=== PATIENT | male | born 1950 | race Caucasian/White ===

== ENCOUNTER 2017-12-28 11:28 | Day surgery (SDC) | payer MEDICARE, MEDICAID, SELFPAY ==
--- NOTE | 2017-12-28 | EGD_PTH ---
PATIENT: ALAINA RICHARD LOC: EN U#:[id number] AGE/SX: 67/M ROOM: RE12/28/[address]: Dr. Fabio Teague MD : 1950 BED: DIS: 12/28/2017 SPEC #: [id number] RECD: 12/28/17 15:19 STATUS: SHAHEED UMU #: [id number] ALMA DELIA: 12/28/17 00:[address]: Fabio Teague DEPT: SURGICAL PATHOLOGY RECD BY: Kirit Lo ENTERED: 12/29/17 08:18 SP TYPE: EGD BIOPSY DAMARIS DR: Dr. Davide Hickman MD Tissues: A - Gastric mucous membrane B - Esophageal mucous membrane Procedures: Surgery Specimen Level IV HEADER OPERATION: EGD with biopsy PRE-OP DIAGNOSIS: GERD and esophagitis TISSUE SUBMITTED: A. Antrum biopsy for H. Pylori and path, B. Esophageal biopsy MICROSCOPIC DIAGNOSIS A. Antrum, biopsy: Mild gastritis. B. Esophageal biopsy: The specimen did not survive processing. SJ:sacha 12/30/17 COMMENT A. The results of immunohistochemistry for Helicobacter pylori will be reported separately ([id number]). MICROSCOPIC DESCRIPTION Slides are reviewed. A. The specimen shows fragments of gastric mucosa with chronic inflammatory cell infiltrates in the lamina propria consisting of lymphocytes and plasma cells, consistent with mild chronic gastritis. GROSS DESCRIPTION A - Received in fixative is one container labeled with the patient's name and designated antrum. The specimen consists of two irregular fragments of light atkinson soft tissue that in aggregate measure 0.3 x 0.2 x 0.1 cm. The specimen is totally submitted in one cassette. B - - Received in fixative is one container labeled with the patient's name and designated esophageal biopsy The specimen consists of a few fragments of atkinson mucoid tissue measuring 0.1 cm in greatest dimension. The specimen is filtered in a biopsy bag and totally submitted in one cassette. RY:sacha 12/29/17 TC:3 CPT: 69707 x1
--- NOTE | 2017-12-28 | IMM_PTH ---
PATIENT: ALAINA RICHARD LOC: EN U#:[id number] AGE/SX: 67/M ROOM: RE12/28/[address]: Dr. Fabio Teague MD : 1950 BED: DIS: 12/28/2017 SPEC #: [id number] RECD: 12/30/17 12:12 STATUS: SHAHEED REHema #: [id number] ALMA DELIA: 12/28/17 00:[address]: Fabio Teague DEPT: IMMUNOHISTOCHEMISTRY RECD BY: Izabela Montes ENTERED: 12/30/17 12:12 SP TYPE: IMMUNO OTHR DR: Dr. Davide Hickman MD Tissues: A - Stomach, NOS Procedures: H Pylori (initial) PHYSICIAN & INSTITUTION [place] [id number] SPECIMEN INFORMATION: Tissue Source: A ? Antral biopsy Clinical Info: GERD, esophagitis Specimen Number: [id number] CPT code: 77163 METHODOLOGY: Deparaffinized sections of prefer/formalin-fixed tissue or PAP/DQ stained slides are incubated with monoclonal/polyclonal antibodies/oligonucleotide probes. Localization is made via biotin free immunoperoxidase method. Appropriate controls are performed and reacted as expected. Results on target cell population are indicated in the following table: RESULTS: ANTIBODY / CLONE RESULT Block A H Pylori (polyclonal) negative These tests were developed and their performance characteristics determined by [facility]. They may not have been cleared or approved by the U.S. Food and Drug Administration. The FDA has determined that such clearance or approval is not necessary. INTERPRETATION: A. Antral biopsy: Negative for Helicobacter pylori organisms. SJ:sacha 12/31/17
--- NOTE | 2017-12-28 07:43 | HP.PCM_ITS ---
History and Physical Date of Admission: 12/28/17 HISTORY AND PHYSICAL ? Frantz Perry 1950 ? REFERRING PHYSICIAN: ~~Will Hickman ? CHIEF COMPLAINT: ~~Consult (for colonoscopy) ? HPI: The patient is a 67 year old male referred for endoscopy. ~The patient~ notes no history of colon complaints. ~Specifically he denies any change in bowel habits, weight changes, blood in stools, black tarry stools or abdominal pain. ~He denies any family history of colon issues. ~The patient notes a history of GERD and takes medication for this regularly. ~He also uses tobacco regularly although he is trying to quit. ~He has not had an EGD in the past. ~ He has undergone prior colonoscopy in 2006 and is due for repeat screening. ? Past medical history is significant for severe COPD, type II diabetes mellitus, spina bifida, hypertension, hyperlipidemia and chronic kidney disease. ~He follows with Dr. Hickman for his chronic medical conditions as well as Dr. Salamanca for pulmonology. ~~He denies problems with sedation in the past. ? ? PAST MEDICAL HISTORY PAST MEDICAL HISTORY Diagnosis Date ? Alcohol abuse, in remission 08/18/2006 ? Since 1982 ? DDD (degenerative disc disease), cervical ? ? severe with compression deformity of C5 ? Depressive disorder, not elsewhere classified 08/18/2006 ? Diabetes (HCC) ? ? Diverticulosis of colon (without mention of hemorrhage) ? ? Edema 08/18/2006 ? Esophageal reflux 08/18/2006 ? Hypertension ? ? Internal hemorrhoids without mention of complication ? ? Interstitial lung disease (HCC) ? ? seeing Dr. Salamanca ? Obesity (BMI 30-39.9) ? ? Other and unspecified hyperlipidemia 04/22/2005 ? Other cholecystitis 04/22/2005 ? Restrictive lung disease ? ? Spina bifida 04/22/2005 ? Spinal stenosis, lumbar region, without neurogenic claudication 08/18/2006 ? 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 Unspecified constipation ? ? Unspecified gastritis and gastroduodenitis without mention of hemorrhage 04/22/2005 ? Unspecified hypothyroidism 04/22/2005 ? ? PAST SURGICAL HISTORY PAST SURGICAL HISTORY Procedure Laterality Date ? BRONCHOSCOPY ? 04/22/2017 ? with Dr. Salamanca ? CARPAL TUNNEL Left 2015 ? COLONOSCOP W/ OR W/O BRS SPEC ? 08/03/07 ? PAST SURGICAL HISTORY OF ? 2007 ? lumbar pain injections ? PAST SURGICAL HISTORY OF ? ? ? wisdom teeth ? SPINE FUSION,ANTER,4-7 SGMTS ? 1968 ? ? CURRENT MEDICATIONS ? Current Outpatient Prescriptions: potassium chloride (K-TAB) 10 mEq tablet Take 1 tablet by mouth once daily. naproxen (NAPROSYN) 500 mg tablet Take 1 tablet by mouth twice daily as needed. Take with food. albuterol HFA (VENTOLIN HFA) 90 mcg/actuation inhaler Inhale 2 Puffs as instructed every 6 hours as needed. umeclidinium-vilanterol (ANORO ELLIPTA) 62.5-25 mcg/actuation inhaler Inhale 1 Inhalation as instructed once daily. lisinopril (ZESTRIL, PRINIVIL) 20 mg tablet Take 1 tablet by mouth once daily. Omeprazole 40 mg capsule Take 1 capsule by mouth once daily. levothyroxine (SYNTHROID) 175 mcg tablet TAKE 1 TABLET BY MOUTH EVERY DAY ON EMPTY STOMACH FOR THYROID metFORMIN ER (GLUCOPHAGE XR) 500 mg 24 hr tablet Take 1 tablet by mouth once daily. TAKE WITH A MEAL Fenofibrate (LOFIBRA) 160 mg tablet Take 1 tablet by mouth once daily. atorvastatin (LIPITOR) 40 mg tablet Take 1 tablet by mouth daily at bedtime. For cholesterol. gabapentin (NEURONTIN) 300 mg capsule Take 2 capsules by mouth three times daily. Blood Pressure Cuff - Home Use AUTOMATED BLOOD PRESSURE CUFF/MONITOR FOR HOME USE. DX: I.10, Essential Hypertension. Use once daily or as directed. Brand covered by insurance ( Regular sized arm cuff) magnesium hydroxide (MILK OF MAGNESIA) 400 mg/5 mL suspension Take 15 mL by mouth once daily as needed for Constipation. FLUoxetine HCl (PROZAC) 40 mg capsule Take 2 capsules by mouth once daily. multivitamin tablet Take 1 tablet by mouth once daily. ACETAMINOPHEN 500 MG TAB as needed ? No current facility-administered medications for this visit. ? ALLERGIES: Alcohol; Flurbiprofen ? PERSONAL HISTORY: SOCIAL HISTORY Social History ~~Marital status: ~~~~~~~~~~~Spouse name: ~~~~~~~~~~~~~~~~~~ ~~Years of education: 16 ~~~~~~~~~~~~~Number of children: 3 ~~~~~~~~ ? 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 ~~~~~~~~~~~~~~~~~~~~~~~~~~~~~~~~~~~~~~~~No dust. ? Social History Main Topics ~~Smoking status: Current Every Day Smoker ~~~~~~~~~~~~~~~~~~~~~~~~~~~~~~~~~~~~~ ~~~~~~~~ ~~~~~Packs/day: 1.00 ~~~~~Years: 45.00 ~~ ~~~~~Types: Cigarettes ~~~~~Start date: 03/24/1969 ~~Smokeless status: Never Used ~~~~~~~~~~~~~~~~~~~ ~~Alcohol use: No ~~~~~~~~~ ~~~~~Comment: recovering alcohlic- 7-16 sober for 33 ~~~~~~~~~~~~~~years ~~Drug use: No ~~~~~~~~~ ~~Sexual activity: No ~~~~~~~~~~~~~~ ? Social History Narrative ~~He has not been able to work since12/2004 due to back pain. ~~ ~~Intellectually know I should quit smoking. ? ? FAMILY HISTORY: FAMILY HISTORY FAMILY HISTORY Problem Relation Age of Onset ? Coronary Artery Disease Mother ? ? ? pacer ? Alzheimer's Disease Mother ? ? Coronary Artery Disease Father ? ? ? pacer, post polio ? Diabetes Maternal Grandfather ? ? Asthma Daughter ? ? REVIEW OF SYMPTOMS: ~~The review of systems data was entered by the nurse and reviewed by me ? Nursing Notes: Samra Rich Ma ~12/01/2017 ~3:54 PM ~Signed REVIEW OF SYSTEMS: ~~~~~General:~~~The patient denies fatigue, denies weight loss, denies weight gain, denies feeling hot, and denies feelings of cold. ~~~~~Eyes: ~The patient denies glaucoma, denies eye injury/surgery, wears glasses or contacts. ~~~~~Ear/Nose/Throat: ~The patient denies allergies, denies hayfever, denies ear infections, and denies bloody noses. ~~~~~Cardiovascular: ~The patient denies chest pain, denies heart disease, denies high blood pressure,denies cardiac stent, denies prior heart attack, denies irregular heart beat, NOTES high cholesterol, ~denies poor circulation, denies heart failure, other cardiac issues, denies claudication, denies cold feet, denies peripheral arterial stent. ~~~~~Respiratory: ~The patient NOTES tuberculosis, NOTES pneumonia, denies frequent cough, denies pulmonary embolism, NOTES shortness of breath, and denies coughing up blood. ~~~~~Gastrointestinal: ~The patient denies difficulty swallowing, NOTES acid reflux, denies ulcers, denies vomiting, denies jaundice/hepatitis, denies gallbladder problems, denies black or tarry stools, denies hemorrhoids, denies bleeding from rectum, denies diverticulitis, NOTES constipation, denies diarrhea , denies loss of stool control, and denies hernias. ~~~~~Kidney/Bladder: ~The patient denies kidney stones, denies urine infections , and denies bloody urine. ~~~~~Skin: ~The patient denies a history of skin cancer, denies bleeding/ changing moles, and denies a history of skin rash. ~~~~~Neurologic: ~The patient denies a history of epilepsy/convulsions, denies headaches, NOTES head/spinal injuries, and denies stroke/TIA. ~~~~~Psychiatric: ~The patient NOTES psychiatric medications, NOTES depression, and denies voices, NOTES substance abuse. (Alcohol ~~~~~Endocrine: ~The patient NOTES thyroid disorders, NOTES diabetes, and denies hormonal problems. ~~~~~Hematologic: ~The patient denies a history of bruising, denies bleeding, and denies anemia, denies blood clots. ~~~~~Infections: ~The patient denies a history of measles and mumps, denies rheumatic fever, and denies sexually transmitted diseases. ~~~~~Musculoskeletal: ~The patient NOTES back pain/injury, NOTES back problems, denies sciatica, denies knee/foot trouble, NOTES arthritis, or denies gout. ? ? When was patient's last Mammogram screening? N/A ? ~Last Colonoscopy: ~2006 ? Samra Rich Ma~ Amy Damico PA-C ? ~ PHYSICAL EXAMINATION: ? General: ~The patient is 67 year old male, well nourished, well hydrated in no acute distress. ~The patient is oriented to time, place, and person. ? VITALS: Blood pressure 112/74, pulse 80, height 171.5 cm (5' 7.5), weight 92.5 kg (204 lb).~Body mass index is 31.48 kg/(m^2).~ ? HEENT: ~Normal cephalic, ataumatic, pupils are equally round, sclera are anicteric, mucous membranes are moist, oropharynx is clear. ~Neck has no masses , asymmetry or lymphadenopathy. Respiratory: ~Clear to auscultation and percussion. ~Normal respiratory excursion and pattern. ? Cardiac: ~Examination is regular rate and rhythm. ? Abdominal exam: ~Soft, nontender, ~with no palpable masses. ~No hepatosplenomegaly. ~No palpable hernias. ? Rectal exam: exam deferred ? Extremities: ~no clubbing, cyanosis or edema. ~No adenopathy. ? Other: ? LABORATORY VALUES: As Noted ? RADIOLOGIC STUDIES: ~As Noted ? Assessment ~ IMPRESSION: encounter for screening colonoscopy. ~GERD and tobacco use- recommend EGD in addition to colonoscopy ? PLAN: ~We will plan for upper and lower endoscopy with MAC with one of the surgeons.~~~We discussed the risks and benefits of the planned endoscopy. ~I have informed the patient that complications can occur including failure to complete the endoscopy and perforation. ~The patient had the opportunity to ask questions concerning the planned endoscopy. ~My staff has also explained the procedure to the patient in understandable terms and has given the patient printed material concerning the procedure. ~The patient freely consents to surgery. ? I plan to use golytely bowel preparation for endoscopy ? The patient has medical comorbidities for which I plan to perform the procedure under monitored anesthetic care. ? Diagnoses: (Z12.11) Encounter for screening for malignant neoplasm of colon ~( primary encounter diagnosis) (K21.9) Gastroesophageal reflux disease, esophagitis presence not specified (Z72.0) Tobacco use ? My findings have been communicated to Dr. Hickman~via shared medical record. ~ This note will be forwarded to Dr. Will Hickman MD. ~~ Return to Clinic: The patient is instructed to follow-up with me 1 week post operatively. ? MARTIR Barbosa MD
[2017-12-28 12:10] LABS: Bedside Glucose 89 mg/dL (70-110)
[2017-12-28 12:13] VITALS: BP 112/68; PULSE 62; RESP 18; TEMP 36.6; O2SAT 97; BMI 31.5
--- NOTE | 2017-12-28 13:24 | PCM.OPRPT ---
Report of Operation Date of Procedure: 12/28/17 Pre-Operative Diagnosis: PPI USE, SCREENING COLONOSCOPY Post-Operative Diagnosis: GASTRIC ULCER, NORMAL COLONOSCOPY - FAIR TO POOR PREP Surgery/Procedure Performed:: EGD WITH BIOPSY, COLONOSCOPY painter tumbling barrel: None Type of Anesthesia:: MAC Anesthesiologist: Adams Carr - ASA3 Specimen's removed: GASTRIC Description of Procedure: The patient was brought to the endoscopy suite. Sign in was performed verifying patient, site, planned procedure, critical nursing information, the patient was monitored with cardiac, pulse oximetric, and blood pressure monitoring devices. Monitored anesthetic care was provided for sedation. Following IV sedation and after the oropharynx was sprayed with Cetacaine spray, a video gastroscope was inserted in the oropharynx and advanced down the esophagus without difficulty. The scope was advanced through the stomach, through the pylorus through the duodenum to the proximal jejunum. the duodenum and jejunum appeared normal. As the scope was withdrawn. There was gastritis and superficial ulcerations in the antral region of the stomach. A biopsy was obtained for H. pylori and pathology. The scope was retroflexed, the GE junction appeared unremarkable. There was noted to be distal esophagitis. The patient was positioned for colonoscopy. A digital rectal exam was performed which revealed stool in the vault The video colonoscope was inserted and advanced to the cecum as verified by the ileocecal valve, cecal base anatomic features and palpation. the patient overall had a relatively poor bowel prep, which limited visualization, but the cecum to the rectum was generally unremarkable. There were a few diverticula noted in the sigmoid region. The scope was retroflexed and the anal verge was unremarkable. The patient tolerated the procedure well and was brought to recovery in stable condition. recommend follow-up colonoscopy in 5 years due to limited prep.
[2017-12-28 13:30] VITALS: BP 112/68; BP 117/57; PULSE 85; RESP 16; TEMP 35.9; O2SAT 93
[2017-12-28 13:35] VITALS: BP 112/68; BP 113/62; PULSE 82; RESP 16; O2SAT 93
[2017-12-28 13:40] VITALS: BP 109/65; BP 112/68; PULSE 75; RESP 16; O2SAT 93
[2017-12-28 13:45] VITALS: BP 112/68; BP 115/70; PULSE 75; RESP 16; TEMP 36; O2SAT 92
[2017-12-28 13:50] VITALS: BP 112/68
== END 2017-12-28 14:32 | disposition home or self-care (01) ==
LOC: EN 11:29 → AC 11:32
PROVIDERS: Family Provider Family Medicine; PCP Family Medicine; Visit Provider Surgery
PROC: 0DJD8ZZ Inspection of Lower Intestinal Tract, Via Natural or Artificial Opening Endoscopic (ICD-10-PCS; CPT 45378; principal; 2017-12-28 12:45)
DX: Z12.11 Encounter for screening for malignant neoplasm of colon (principal); K25.9 Gastric ulcer, unspecified as acute or chronic, without hemorrhage or perforation; K29.70 Gastritis, unspecified, without bleeding; K21.9 Gastro-esophageal reflux disease without esophagitis; I12.9 Hypertensive chronic kidney disease with stage 1 through stage 4 chronic kidney disease, or unspecified chronic kidney disease; E11.22 Type 2 diabetes mellitus with diabetic chronic kidney disease; N18.9 Chronic kidney disease, unspecified; J44.9 Chronic obstructive pulmonary disease, unspecified; Q05.9 Spina bifida, unspecified; E78.5 Hyperlipidemia, unspecified; F32.9 Major depressive disorder, single episode, unspecified; E06.9 Thyroiditis, unspecified; M50.30 Other cervical disc degeneration, unspecified cervical region; F10.11 Alcohol abuse, in remission; F17.200 Nicotine dependence, unspecified, uncomplicated; E66.9 Obesity, unspecified; Z68.31 Body mass index [BMI] 31.0-31.9, adult; Z79.84 Long term (current) use of oral hypoglycemic drugs; Z79.899 Other long term (current) drug therapy; Z87.19 Personal history of other diseases of the digestive system; K57.30 Diverticulosis of large intestine without perforation or abscess without bleeding
CPT/HCPCS: 43239; G0121; 82962; 88305; 88342; J7120

== ENCOUNTER 2018-11-10 13:16 | Emergency (ER) | payer MEDICARE, MEDICAID, SELFPAY ==
[2018-11-10 13:17] VITALS: BP 149/86; PULSE 94; RESP 18; TEMP 36.6; O2SAT 99; BMI 28.5
--- NOTE | 2018-11-10 13:42 | ED.VIS.GEN ---
History of Present Illness Chief Complaint: Numb/Ting Informant: Patient Onset: Month(s), - Context: - - Started fall 2017 worse past couple of days Timing: Continuous Quality: Tingling Location: Total body Current Severity: Moderate Maximum Severity: Moderate Worsened by: Nothing Relieved by: Nothing Associated Symptoms: Fatigue and weakness Narrative: Patient is a 68-year-old male who is a smoker and recovering alcoholic. States is not an alcoholic drink in 10 years. He denies drug use. He is on Neurontin. He has followed up with his physician. He presents because of increased numbness especially right and left hand. He has no history of carpal tunnel syndrome. He has no history of diabetes. There is no history of trauma. He denies any urologic or GI symptoms. He denies change in color, consistency, caliber of his stool. He denies weight loss or night sweats. Prior similar symptoms: Yes Recent Illness/Hospitalization: No Past Medical History - Allergies and Home Meds Allergies/Adverse Reactions: Allergies No Known Allergies Allergy (Verified 11/10/18 13:17) Primary Care Physician: Davide Hickman MD [Primary Care Provider] - Lives: Alone Smoking Status: Heavy Smoker (>10/day) Alcohol: Sober Drugs: None Review of Systems General: Reports: Malaise. Denies: Chills, Fever, Subjective, Sweats, Weight loss Eyes: Denies: Visual changes - bilaterally, Blurred Vision - bilaterally, Diplopia ENT: Denies: Bilateral ear pain, Rhinorrhea, Sore throat Cardiovascular: Denies: Chest pain, Palpitations Respiratory: Denies: Dyspnea, Cough, Dyspnea on exertion Gastrointestinal: Denies: Abdominal pain, Nausea, Vomiting, Diarrhea, Melena, Hematochezia Genitourinary: Denies: Dysuria, Hematuria, Frequency Musculoskeletal: Reports: Myalgias. Denies: Arthralgias, Back pain, Extremity Pain Skin: Denies: Rash, Wounds Neurological: Reports: Weakness, Parasthesia, Numbness. Denies: Headache Endocrine: Denies: Polyuria, Polydipsia Hematologic: Denies: Easy bruising Physical Exam Vital Signs/Narrative: Vital Signs Temp Pulse Resp BP Pulse Ox 11/10/18 13:17 97.8 F 94 18 149/86 H 99 Inital Vital Signs reviewed: Yes General: Well nourished, Well developed, No Acute Distress Head: Normocephalic, Atraumatic Eyes: Perrl, EOMI. Negative for: Pale conjunctiva, Scleral icterus ENT: Moist mucous membranes, No rhinorrhea. Negative for: TM's clear Neck: Supple, Nontender Cardiovascular: Regular rate, Regular rhythm, No murmurs, Normal S1, Normal S2 Respiratory: No distress, CTA bilaterally, Chest nontender Abdomen: Soft, Nontender, Nondistended, Normal bowel sounds Back: Nontender, Normal Inspection Extremities: Nontender, No edema Skin: Normal color, No rash. Negative for: Cyanosis, Jaundice, Rash Neurological: Alert, Oriented x3, Cranial nerves II-XII grossly intact, Normal Strength, Normal Sensation, Normal Gait - He is able to walk on his toes and heels. He is able to to walk with one foot in front of the other., - - Romberg test with eyes open and close was normal.. Negative for: Normal DTR Psychological: Depressed - He has slow psychomotor skills. Diagnostic/Tx/Re-eval Laboratory Results 11/10/18 11/10/18 13:50 13:50 WBC 7.6 RBC 4.02 L Hgb 13.0 Hct 39.7 L MCV 98.8 H MCH 32.3 H MCHC 32.7 RDW 13.5 RDW Differential 49.1 H Plt Count 317 MPV 8.7 Immature Gran % (Auto) 0.400 Neut % (Auto) 63.8 Lymph % (Auto) 20.8 Elmore % (Auto) 8.2 Eos % (Auto) 6.1 H Baso % (Auto) 0.7 Absolute Neuts (auto) 4.8 Absolute Lymphs (auto) 1.57 Total Counted Not Reportable Sodium 132 L Potassium 4.2 Chloride 97 L Carbon Dioxide 28.0 Anion Gap 7 BUN 11 Creatinine 1.06 Estim Creat Clear Calc 64.09 Est GFR (MDRD) Af Amer 90 Est GFR (MDRD) Non-Af 74 BUN/Creatinine Ratio 10.4 Glucose 82 Calcium 9.0 Total Bilirubin 0.30 AST 26 ALT 26 Alkaline Phosphatase 92 Total Protein 7.5 Albumin 4.0 Globulin 3.5 Albumin/Globulin Ratio 1.1 - Medical Decision Making With prior history of alcohol use and the fact that he is a smoker will obtain basic blood work to look for metabolic cause specifically electrode abnormality, liver disease anemia. Electric panels marked for mild hyponatremia, 132. Patient was informed to follow-up with his doctor. The cause of his generalized paresthesias unknown. ED Disposition - Plan for ED Patient: Disposition: Home or Assisted Living Diagnosis: Paresthesia Instructions: ED Paraesthesias Referrals: Davide Hickman MD [Primary Care Provider] - 3-5 Days Additional Instructions: Since your symptoms have been present for several months and your workup is unremarkable, recommend you follow-up with your primary care doctor for further outpatient testing to determine the cause of your numbness and tingling.
[2018-11-10 14:11] LABS: Absolute Lymphocyte Count 1.57 X10^3/ul (0.83-4.51); Absolute Neutrophil Count 4.8 X10^3/uL (2.0-7.7); Basophil# 0.05 X10^3/uL; Basophil% 0.7 % (0-1); Eosinophil# 0.46 X10^3/uL; Eosinophils% 6.1 % (0-5); Hematocrit 39.7 % (40-54); Lymphocyte # 1.57 X10^3/ul (4.0); Lymphocyte % 20.8 % (19-41); Mean Corp Hgb Conc 32.7 g/gl (32-36); Mean Corpuscular Hgb 32.3 pg (27.0-32.0); Mean Corpuscular Volume 98.8 fL (80-94); Mean Platelet Vol. 8.7 fl (6.2-12.0); Monocyte# 0.62 X10^3/uL; Monocyte% 8.2 % (0-10); Neutrophil # 4.82 X10^3/uL (2.7-7.7); Neutrophil % 63.8 % (47-70); POSITIVE COUNT NO; POSITIVE DIFFERENTIAL NO; POSITIVE MORPHOLOGY NO; Platelet Count 317 K/mm3 (150-450); RBC Distribution Width CV 13.5 % (11.6-14.6); RBC Distribution Width SD 49.1 fl (35.1-43.9); Red Blood Count 4.02 M/mm3 (4.6-6.2); White Blood Count 7.6 K/mm3 (4.4-11.0)
[2018-11-10 14:22] LABS: ALB/GLOB Ratio 1.1 RATIO (0.9-2.4); AST(SGOT) 26 U/L (15-37); Alanine Aminotransfer ALT/SGPT 26 U/L (16-61); Alkaline Phosphatase 92 U/L (45-117); Anion Gap 7 (5-15); BUN 11 mg/dL (7-18); BUN/Creat Ratio 10.4 RATIO (10-20); Chloride 97 mmol/L (98-107); Creatinine, Serum 1.06 mg/dL (0.70-1.30); EST Glomerular Filtration Rate 74 mL/min (>60); Est Glom Filt Rate - Afr Amer 90 mL/min (>60); Estimated Creatinine Clearance 64.09 ml/min; Globulin 3.5 g/dL (2.2-4.2); Glucose 82 mg/dL (74-106); Potassium 4.2 mmol/L (3.5-5.1); Protein, Total 7.5 g/dL (6.4-8.2); Sodium Level 132 mmol/L (136-145)
[2018-11-10 14:40] VITALS: BP 135/67; PULSE 59; RESP 16; O2SAT 96
== END 2018-11-10 14:41 | disposition home or self-care (01) ==
PROVIDERS: Emergency Provider Emergency Medicine; Family Provider Family Medicine; PCP Family Medicine
DX: R20.2 Paresthesia of skin (principal); E87.1 Hypo-osmolality and hyponatremia; F32.9 Major depressive disorder, single episode, unspecified; F17.200 Nicotine dependence, unspecified, uncomplicated; F10.21 Alcohol dependence, in remission; Z79.84 Long term (current) use of oral hypoglycemic drugs; Z79.899 Other long term (current) drug therapy
CPT/HCPCS: 80053; 85025; 99283

== ENCOUNTER 2018-12-18 23:28 | Emergency (ER) | payer MEDICARE, MEDICAID, SELFPAY ==
[2018-12-18 23:29] VITALS: BP 143/99; PULSE 67; RESP 18; TEMP 37.1; O2SAT 94; BMI 27.3
[2018-12-18 23:45] LABS: Bedside Glucose 77 mg/dL (70-110)
--- NOTE | 2018-12-18 23:57 | EKG12_ITS ---
Test Reason : WEAKNESS Blood Pressure : / mmHG Vent. Rate : 084 BPM Atrial Rate : 084 BPM P-R Int : 160 ms QRS Dur : 080 ms QT Int : 388 ms P-R-T Axes : 023 083 028 degrees QTc Int : 458 ms Normal sinus rhythm Normal ECG Confirmed by AMARA BUSTAMANTE, NIRMALA ([id number]), deputy editor in chief BALWINDER BARONE ([id number]) on 12/22/2018 1:16:06 PM Referred By: KEVON Confirmed By:NIRMALA MALONEY MD
--- NOTE | 2018-12-18 23:57 | RAD_ITS ---
STUDY: X-RAY CHEST REASON FOR EXAM: Male, 68 years old. Weakness TECHNIQUE: Single AP portable view of the chest. COMPARISON: None. FINDINGS: There are superimposed monitor leads. There is low lung volume. Nodularity noted along the chest wall left with rib deformities, probable callus formation. There is no demonstrated pleural abnormality. There is borderline cardiomegaly. Normal mediastinum and giana. Normal visualized pulmonary arteries. Normal visualized aortic arch and descending thoracic aorta. Obscured thoracic spine. There is degenerative osteoarthritis of the bilateral shoulders. There is no demonstrated abnormality of the visualized soft tissue structures of the upper abdomen. RAD/Chest 1 View (Portable) IMPRESSION: Low lung volume with borderline cardiac size. No pulmonary edema, congestive heart failure or confluent pneumonia. Subacute or chronic rib deformities with presumed callus formation. Electronically Signed: Nika Acosta MD at 0:44 EDT , Service support ,
--- NOTE | 2018-12-19 | ED.RN ---
NO OLD EKGS IN MUSE
[2018-12-19] MEDS: 0.9% Normal Saline 1,000 ML 1000 ML IV (00:09)
[2018-12-19 00:21] LABS: Mucous, Urine 0 SEEN /hpf (<or=2+); Red Blood Cells-Urine 0 SEEN /hpf (0-5); White Blood Cells 0 SEEN /hpf (0-5)
--- NOTE | 2018-12-19 00:23 | ED.RN ---
PT CLOTHING REMOVED AND PT BATHED. ONE COCKROACH FOUND AND CAPTURED. PT CLOTHING TRIPLE BAGGED. SHEETS REMOVED FROM UNDER PT AND BAGGED. NO OTHER BUGS FOUND.
[2018-12-19 00:24] LABS: AST(SGOT) 31 U/L (15-37); Alanine Aminotransfer ALT/SGPT 31 U/L (16-61); Albumin, Serum 3.8 g/dL (3.2-5.0); Alkaline Phosphatase 114 U/L (45-117); Anion Gap 8 (5-15); BUN 37 mg/dL (7-18); BUN/Creat Ratio 43.7 RATIO (10-20); Calcium,Total 9.3 mg/dL (8.5-10.1); Chloride 102 mmol/L (98-107); Creatinine, Serum 0.85 mg/dL (0.70-1.30); EST Glomerular Filtration Rate 96 mL/min (>60); Est Glom Filt Rate - Afr Amer 116 mL/min (>60); Estimated Creatinine Clearance 79.92 ml/min; Globulin 3.7 g/dL (2.2-4.2); Glucose 88 mg/dL (74-106); Lipase 93 U/L (73-393); Potassium 4.2 mmol/L (3.5-5.1); Protein, Total 7.5 g/dL (6.4-8.2); Sodium Level 137 mmol/L (136-145)
[2018-12-19 00:25] LABS: Color, Urine Yellow (Yellow); Glucose, Dipstick Normal (Normal); Ketone-Dipstick 50 mg/dl (Negative); Leukocyte Esterase-Dipstick Negative /ul (Negative); Nitrite-Dipstick Negative (Negative); Occult Blood-Urine Negative /ul (Negative); Protein-Dipstick 30 mg/dl (Negative); Urine Clarity Clear (Clear); Urine Urobilinogen 4 mg/dl (Normal)
[2018-12-19 00:30] LABS: Urine Bilirubin Dipstick 1 mg/dL (Negative)
[2018-12-19 00:31] LABS: Bacteria RARE /hpf (None Seen); Squamous Epithelial Cells - UA 0-5 SEEN /hpf (0-5)
[2018-12-19 00:41] LABS: Absolute Lymphocyte Count 1.09 X10^3/ul (0.83-4.51); Absolute Neutrophil Count 7.9 X10^3/uL (2.0-7.7); Basophil# 0.03 X10^3/uL; Basophil% 0.3 % (0-1); Eosinophil# 0.12 X10^3/uL; Eosinophils% 1.2 % (0-5); Hemoglobin 14.5 g/dl (13.0-16.5); Lymphocyte # 1.09 X10^3/ul (4.0); Lymphocyte % 10.6 % (19-41); Mean Corp Hgb Conc 33.7 g/gl (32-36); Mean Corpuscular Hgb 32.9 pg (27.0-32.0); Mean Corpuscular Volume 97.5 fL (80-94); Mean Platelet Vol. 9.6 fl (6.2-12.0); Monocyte# 1.05 X10^3/uL; Monocyte% 10.2 % (0-10); Neutrophil # 7.94 X10^3/uL (2.7-7.7); Neutrophil % 77.5 % (47-70); POSITIVE COUNT NO; POSITIVE DIFFERENTIAL NO; POSITIVE MORPHOLOGY NO; Platelet Count 328 K/mm3 (150-450); RBC Distribution Width CV 13.1 % (11.6-14.6); RBC Distribution Width SD 45.4 fl (35.1-43.9); Red Blood Count 4.41 M/mm3 (4.6-6.2); White Blood Count 10.3 K/mm3 (4.4-11.0)
[2018-12-19 01:32] VITALS: BP 171/91; PULSE 73; RESP 18; O2SAT 92
[2018-12-19 01:42] LABS: CPK Total, Creatine Kinase 243 U/L (39-308)
--- NOTE | 2018-12-19 02:16 | ED.RN ---
PT ASSISTED OUT OF BED WITH 2 STAFF MEMBERS. ATTEMPTED TO AMBULATE THE PT. PT DID NOT MAKE PAST THE END OF THE ER BED. STAFF HAS GREAT CONCERN THAT THE PT WOULD FALL. PT VERY UNSTEADY AND UNABLE TO STAND UP STRAIGHT. DR GONSALEZ NOTIFIED
--- NOTE | 2018-12-19 02:25 | ED.VISSUMM ---
- ER Visit Summary Date of Service: 12/19/18 Chief Complaint: Weakness History of Present Illness: The patient is a 68 M who presents with generalized weakness. He complains of months of chronic neck and back pain as well as numbness in his hands. He states the symptoms have worsened. In the last couple of days he has developed generalized weakness and has been laying on the floor initially because this was a position of comfort. He states today he was able to sit up but could not stand on his own. His neighbor checked on him and he was unable to get up and EMS was called. He otherwise complains of some mild rhinorrhea but no focal symptoms. He denies fevers chest pain shortness of breath abdominal pain vomiting diarrhea. 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 CBC CMP lipase unremarkable. Urinalysis shows ketones but otherwise normal. Alcohol normal. CPK normal. Chest x-ray shows no edema CHF or pneumonia. Emergency Department Course and Treatment: Patient was treated with IV fluids here. His workup is essentially unremarkable. However he is unable to ambulate. With attempts at ambulation here he was unsteady as soon as he was up to the side of the bed. Therefore patient will require hospitalization for further workup and possible placement. Treatment Plan: [] Disposition: Admit Impression: Generalized weakness This note was generated with [employer] dictation software. It may contain incorrect words, spelling, and punctuation that were not noted in review of the chart prior to signing ED Disposition - Plan for ED Patient: Referrals: Davide Hickman MD [Primary Care Provider] -
--- NOTE | 2018-12-19 02:28 | HP.PCM_ITS ---
History of Present Illness The patient is a 68 year old M [] Past Medical History Allergies No Known Allergies Allergy (Verified 12/18/18 23:34) Home Medications: Ambulatory Orders Medication Instructions Recorded Albuterol Inhaler 2 inh INHALATION Q6H PRN 12/28/17 Atorvastatin Calcium 40 mg PO QHS 12/28/17 Fenofibrate [Lipofen] 160 mg PO DAILY 12/28/17 Fluoxetine HCl [Prozac] 40 mg PO DAILY 12/28/17 Gabapentin [Neurontin] 300 mg PO TID 12/28/17 Levothyroxine [Synthroid] 175 mcg PO QHS 12/28/17 Lisinopril 20 mg PO DAILY 12/28/17 Metformin(XR) [Glucophage Xr] 500 mg PO DAILY 12/28/17 Multivitamin [Daily Multiple 1 each PO DAILY 12/28/17 Vitamin] Omeprazole 40 mg PO DAILY 12/28/17 Potassium Chloride 10 meq PO DAILY 12/28/17 Umeclidinium Brm/Vilanterol Tr 2 inh INHALATION BID 12/28/17 [Anoro Ellipta 62.5-25 Mcg INH] Smoking Status: Current every day smoker - Physical Exam Vital Signs Temp Pulse Resp BP Pulse Ox 98.8 F 73 18 171/91 H 92 12/18/18 23:29 12/19/18 01:32 12/19/18 01:32 12/19/18 01:32 12/19/18 01:32 Oxygen Delivery Method Room Air Weight: 79.2 kg Body Mass Index (BMI) 27.3 Finger Stick Blood Glucose 77 Laboratory Tests Past 24 Hrs 12/18/18 12/18/18 12/18/18 23:50 23:50 23:50 WBC 10.3 RBC 4.41 L Hgb 14.5 Hct 43.0 MCV 97.5 H MCH 32.9 H MCHC 33.7 RDW 13.1 RDW Differential 45.4 H Plt Count 328 MPV 9.6 Immature Gran % (Auto) 0.200 Neut % (Auto) 77.5 H Lymph % (Auto) 10.6 L [place] % (Auto) 10.2 H Eos % (Auto) 1.2 Baso % (Auto) 0.3 Absolute Neuts (auto) 7.9 H Absolute Lymphs (auto) 1.09 Total Counted Not Reportable Sodium 137 Potassium 4.2 Chloride 102 Carbon Dioxide 27.0 Anion Gap 8 BUN 37 H Creatinine 0.85 Estim Creat Clear Calc 79.92 Est GFR (MDRD) Af Amer 116 Est GFR (MDRD) Non-Af 96 BUN/Creatinine Ratio 43.7 H Glucose 88 Calcium 9.3 Total Bilirubin 0.50 AST 31 ALT 31 Alkaline Phosphatase 114 Total Creatine Kinase 243 Total Protein 7.5 Albumin 3.8 Globulin 3.7 Albumin/Globulin Ratio 1.0 Lipase 93 Urine Color Urine Clarity Urine pH Ur Specific [place] Urine Protein Urine Glucose (UA) Urine Ketones Urine Occult Blood Urine Nitrite Urine Bilirubin Urine Urobilinogen Ur Leukocyte Esterase Urine RBC Urine WBC Ur Squamous Epith Cells Urine Bacteria Urine Mucus Ethyl Alcohol 12/18/18 12/19/18 23:50 00:12 WBC RBC Hgb Hct MCV MCH MCHC RDW RDW Differential Plt Count MPV Immature Gran % (Auto) Neut % (Auto) Lymph % (Auto) [place] % (Auto) Eos % (Auto) Baso % (Auto) Absolute Neuts (auto) Absolute Lymphs (auto) Total Counted Sodium Potassium Chloride Carbon Dioxide Anion Gap BUN Creatinine Estim Creat Clear Calc Est GFR (MDRD) Af Amer Est GFR (MDRD) Non-Af BUN/Creatinine Ratio Glucose Calcium Total Bilirubin AST ALT Alkaline Phosphatase Total Creatine Kinase Total Protein Albumin Globulin Albumin/Globulin Ratio Lipase Urine Color Yellow Urine Clarity Clear Urine pH 6.0 Ur Specific [place] 1.020 Urine Protein 30 H Urine Glucose (UA) Normal Urine Ketones 50 H Urine Occult Blood Negative Urine Nitrite Negative Urine Bilirubin 1 H Urine Urobilinogen 4 H Ur Leukocyte Esterase Negative Urine RBC 0 SEEN Urine WBC 0 SEEN Ur Squamous Epith Cells 0-5 SEEN Urine Bacteria RARE Urine Mucus 0 SEEN Ethyl Alcohol 8.0 POC Glucose 12/18/18 23:32 POC Glucose 77
--- NOTE | 2018-12-19 02:29 | ED.DCSUM_ITS ---
- ER Visit Summary Date of Service: 12/19/18 Chief Complaint: Weakness History of Present Illness: The patient is a 68 M who presents with generalized weakness. He complains of months of chronic neck and back pain as well as numbness in his hands. He states the symptoms have worsened. In the last couple of days he has developed generalized weakness and has been laying on the floor initially because this was a position of comfort. He states today he was able to sit up but could not stand on his own. His neighbor checked on him and he was unable to get up and EMS was called. He otherwise complains of some mild rhinorrhea but no focal symptoms. He denies fevers chest pain shortness of breath abdominal pain vomiting diarrhea. 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 CBC CMP lipase unremarkable. Urinalysis shows ketones but otherwise normal. Alcohol normal. CPK normal. Chest x-ray shows no edema CHF or pneumonia. Emergency Department Course and Treatment: Patient was treated with IV fluids here. His workup is essentially unremarkable. However he is unable to ambulate. With attempts at ambulation here he was unsteady as soon as he was up to the side of the bed. Therefore patient will require hospitalization for further workup and possible placement. Treatment Plan: [] Disposition: Admit Impression: Generalized weakness This note was generated with [email or web address] dictation software. It may contain incorrect words, spelling, and punctuation that were not noted in review of the chart prior to signing ED Disposition - Plan for ED Patient: Referrals: Davide Hickman MD [Primary Care Provider] -
[2018-12-19 02:41] LABS: Bedside Glucose 76 mg/dL (70-110)
--- NOTE | 2018-12-19 03:17 | CON.PCM_ITS ---
Problem List (1) Spinal stenosis Status: Acute Reason for Consult Date of Consultation: 12/19/18 Reason for Consultation: Generalized weakness History of Present Illness: The patient is a 68 year old M with a significant history of hypertension; tobacco abuse diabetes mellitus; chronic neck and back pain with back surgery and reported spina bifida who presented to the emergency department because of progressively worsening inability to move around and multiple falls. Patient reported that in July 2018 he fell. He reports that he is weak to the point that he is even unable to use a cane to walk. He reported that his symptoms progressively got worse about 2 weeks ago but in the last week his pain has been way overboard. He reports inability to get up from a lying position for which reason he has not been able to eat or take any of his medication. A neighbor knocked on his and he alerted the neighbor to call the squad who brought him to the emergency department. Because his blood glucose was low, paramedics gave him oral glucose. The patient reported that his PCP is Dr. Hickman, [facility]. His PCP referred him to Dr. Jules, design engineering specialist at [facility]. Also he reported he has seen back specialist at [facility]. The name of the back specialist he could not recall. He had MRI of his neck in October 2018 which reportedly showed spinal stenosis. He reported that the surgery of his cervical spine is being planned He reported that as a teenager playing football he injured his back and had surgery and at that time he was notified that he had spina bifida. Patient reports neck pain, back pain and generalized pain. In July 2018 he worked with physical therapy. Past Medical History Medical History: Medical History (Last Updated 12/19/18 @ 03:23 by Cameron Espinoza MD) Diabetes E11.9 HTN (hypertension) I10 Allergies No Known Allergies Allergy (Verified 12/18/18 23:34) Home Medications: Ambulatory Orders Medication Instructions Recorded Albuterol Inhaler 2 inh INHALATION Q6H PRN 12/28/17 Atorvastatin Calcium 40 mg PO QHS 12/28/17 Fenofibrate [Lipofen] 160 mg PO DAILY 12/28/17 Fluoxetine HCl [Prozac] 40 mg PO DAILY 12/28/17 Gabapentin [Neurontin] 300 mg PO TID 12/28/17 Levothyroxine [Synthroid] 175 mcg PO QHS 12/28/17 Lisinopril 20 mg PO DAILY 12/28/17 Metformin(XR) [Glucophage Xr] 500 mg PO DAILY 12/28/17 Multivitamin [Daily Multiple 1 each PO DAILY 12/28/17 Vitamin] Omeprazole 40 mg PO DAILY 12/28/17 Potassium Chloride 10 meq PO DAILY 12/28/17 Umeclidinium Brm/Vilanterol Tr 2 inh INHALATION BID 12/28/17 [Anoro Ellipta 62.5-25 Mcg INH] Surgical History: - - back surgery Lives: Alone Smoking Status: Current every day smoker Tobacco Use: Cigarettes Alcohol: Sober - *Family History Maternal History Items: Heart Disease Paternal History Items: Heart Disease Review of Systems Constitutional: Reports: Weakness HEENT: Denies: Head Aches, Sinus Congestion, Sinus Drainage Cardiovascular: Denies: Chest Pain, Palpitations Respiratory: Reports: Shortness of Breath. Denies: Cough, Shortness of breath at rest, Sputum production Gastrointestinal: Denies: Abdominal Pain, Nausea, Vomiting Genitourinary: Denies: Dysuria Musculoskeletal: Reports: Back Pain, Muscle pain, Neck Pain, Shoulder Pain. Denies: Joint Pain, Joint Tenderness Skin: Denies: Rash, Wounds Neurological: Denies: Numbness, Tingling, Focal weakness Psychiatric: Denies: Anxiety, Depression, Homicidal Ideations, Suicidal Ideations Hematologic/ Lymphatic: Denies: Easy Bruising, Easy Bleeding Patient Problems: Active and Suspected Problems (Last Updated 12/19/18 @ 03:23 by Cameron Espinoza MD) Spinal stenosis (Acute) - Physical Exam General: Alert, Oriented x3, Cooperative HEENT: Atraumatic, PERRLA, EOMI, Normocephalic Neck: Supple, No JVD, Negative Carotid Bruits Lungs: Clear to auscultation, Normal air movement Cardiovascular: Regular rate, No murmurs Abdomen: Bowel Sounds Present, Soft, Non Tender Extremities: No edema, Capillary Refill Less than 3 Seconds Skin: No rashes, No breakdown Musculoskeletal: No Tenderness to Palpation of Joints or Extremities, - - Decreased range of motion of all extremities. Neurological: Neuro grossly intact, - - Strength in right upper extremity 3 out of 5; strength in right lower extremity 4 out of 5. Strength in left upper extremity 5 out of 5; strength in left lower extremity 4 out of 5. Psych/Mental Status: Normal Affect, Appropriate Vital Signs Temp Pulse Resp BP Pulse Ox 98.8 F 73 18 171/91 H 92 12/18/18 23:29 12/19/18 01:32 12/19/18 01:32 12/19/18 01:32 12/19/18 01:32 Oxygen Delivery Method Room Air Weight: 79.2 kg Body Mass Index (BMI) 27.3 Finger Stick Blood Glucose 76 Laboratory Tests Past 24 Hrs 12/18/18 12/18/18 12/18/18 23:50 23:50 23:50 WBC 10.3 RBC 4.41 L Hgb 14.5 Hct 43.0 MCV 97.5 H MCH 32.9 H MCHC 33.7 RDW 13.1 RDW Differential 45.4 H Plt Count 328 MPV 9.6 Immature Gran % (Auto) 0.200 Neut % (Auto) 77.5 H Lymph % (Auto) 10.6 L [place] % (Auto) 10.2 H Eos % (Auto) 1.2 Baso % (Auto) 0.3 Absolute Neuts (auto) 7.9 H Absolute Lymphs (auto) 1.09 Total Counted Not Reportable Sodium 137 Potassium 4.2 Chloride 102 Carbon Dioxide 27.0 Anion Gap 8 BUN 37 H Creatinine 0.85 Estim Creat Clear Calc 79.92 Est GFR (MDRD) Af Amer 116 Est GFR (MDRD) Non-Af 96 BUN/Creatinine Ratio 43.7 H Glucose 88 Calcium 9.3 Total Bilirubin 0.50 AST 31 ALT 31 Alkaline Phosphatase 114 Total Creatine Kinase 243 Total Protein 7.5 Albumin 3.8 Globulin 3.7 Albumin/Globulin Ratio 1.0 Lipase 93 Urine Color Urine Clarity Urine pH Ur Specific [place] Urine Protein Urine Glucose (UA) Urine Ketones Urine Occult Blood Urine Nitrite Urine Bilirubin Urine Urobilinogen Ur Leukocyte Esterase Urine RBC Urine WBC Ur Squamous Epith Cells Urine Bacteria Urine Mucus Ethyl Alcohol 12/18/18 12/19/18 23:50 00:12 WBC RBC Hgb Hct MCV MCH MCHC RDW RDW Differential Plt Count MPV Immature Gran % (Auto) Neut % (Auto) Lymph % (Auto) [place] % (Auto) Eos % (Auto) Baso % (Auto) Absolute Neuts (auto) Absolute Lymphs (auto) Total Counted Sodium Potassium Chloride Carbon Dioxide Anion Gap BUN Creatinine Estim Creat Clear Calc Est GFR (MDRD) Af Amer Est GFR (MDRD) Non-Af BUN/Creatinine Ratio Glucose Calcium Total Bilirubin AST ALT Alkaline Phosphatase Total Creatine Kinase Total Protein Albumin Globulin Albumin/Globulin Ratio Lipase Urine Color Yellow Urine Clarity Clear Urine pH 6.0 Ur Specific [place] 1.020 Urine Protein 30 H Urine Glucose (UA) Normal Urine Ketones 50 H Urine Occult Blood Negative Urine Nitrite Negative Urine Bilirubin 1 H Urine Urobilinogen 4 H Ur Leukocyte Esterase Negative Urine RBC 0 SEEN Urine WBC 0 SEEN Ur Squamous Epith Cells 0-5 SEEN Urine Bacteria RARE Urine Mucus 0 SEEN Ethyl Alcohol 8.0 POC Glucose 12/19/18 12/18/18 02:33 23:32 POC Glucose 76 77 Assessment/Plan All Active Problems (Last Updated 12/19/18 @ 03:23 by Cameron Espinoza MD) Spinal stenosis (Acute) The patient is a 68 year old M with a significant history of hypertension; tobacco abuse diabetes mellitus; chronic neck and back pain with back surgery and reported spina bifida who presented to the emergency department because of progressively worsening inability to move around and multiple falls. Spinal stenosis His symptoms may be due to progressively worsening spinal stenosis. Discussed with the emergency department doctor to transfer the patient to where there is a spinal specialist/neurosurgery team. Tobacco abuse Patient reports that he has not been diagnosed with COPD but he was told that he is at the edge of developing COPD. He reports using 2 inhalers at home. Patient was counseled. Code Visit Office Visits / Consults: [id number] OP Consult L4
--- NOTE | 2018-12-19 03:37 | ED.RN ---
[facility]ED [facility], [facility], [facility], AND [facility], NONE ARE ABLE TO TRANSPORT AT THIS TIME.
[2018-12-19 03:44] VITALS: BP 146/96; PULSE 82; RESP 17; O2SAT 100
[2018-12-19 05:28] VITALS: BP 162/92; PULSE 93; RESP 17; O2SAT 91
[2018-12-19 06:39] VITALS: BP 151/87; PULSE 82; RESP 18; O2SAT 94
[2018-12-19 08:08] VITALS: BP 153/89; PULSE 96; RESP 17; O2SAT 92
--- NOTE | 2018-12-19 08:10 | ED.RN ---
Pt awake and alert when I entered room. He proceeded to tell me how he had declined in strength over the last 4 days. pt stated he would ambulate throughout home with cane the added that he was unable to use the cane the last couple days. States he has not had his meds or food intake and talks of increasing weakness with extremities. I assisted pt to a sitting position and encouraged him to boost himself further up bed. Pt was able to maintain sitting position with miminal assist from the RN. His demonstration of trying to boost in bed was poor and I pulled him into better position while adjusted knee gatch to maintain position. He asked for water and I handed water to pt. He states he was unable to hold the water cup on his own. I encouraged the pt to grab the cup while assisting minimally. He was able to hold cup and bring it to his mouth and drink under control without my help. Vitals within regular limits. No distress noted.
--- NOTE | 2018-12-19 08:51 | NURSING ---
[facility] MAIN H60 BED 5 NURSE TO NURSE [phone]
--- NOTE | 2018-12-19 08:55 | ED.RN ---
Pt given coffee and soda per request. Able to drink on own with minimal assist. Pt observed reaching across body to adjust bed postioning.
--- NOTE | 2018-12-19 09:35 | NURSING ---
CALLED [facility] FOR TRANSPORT. ETA IS FROM [place]
[2018-12-19 10:38] VITALS: BP 152/97; PULSE 87; RESP 12; RESP 17; O2SAT 94
--- NOTE | 2018-12-19 10:41 | ED.RN ---
I have called x3 over the last hour and half to give report to [facility]. Each time the receiving nurse was not available due to admin of pt care in his area. He did return the call while I was admin pt care Prior to pt leaving I attempted to call report once again with the receiving RN unavailable. I informed the receiving hospital the pt was enroute, stable and alert. I also encouraged them to call for report when it is convenient for them.
--- NOTE | 2018-12-19 11:10 | ED.RN ---
Report to [facility] at [facility]
== END 2018-12-19 10:35 | disposition short-term general hospital (02) ==
LOC: ED 12-19 00:15 → MS3 12-19 02:54 → ED 12-19 03:12
PROVIDERS: Emergency Provider Emergency Medicine; Family Provider Family Medicine; PCP Family Medicine
DX: M48.00 Spinal stenosis, site unspecified (principal); M54.9 Dorsalgia, unspecified; M54.2 Cervicalgia; G89.29 Other chronic pain; R20.0 Anesthesia of skin; E11.9 Type 2 diabetes mellitus without complications; I10 Essential (primary) hypertension; Z79.84 Long term (current) use of oral hypoglycemic drugs; Z79.899 Other long term (current) drug therapy; F17.210 Nicotine dependence, cigarettes, uncomplicated
CPT/HCPCS: 51702; 71045; 80053; 80320; 81001; 82550; 82962; 83690; 85025; 93005; 96360; 99285; J7030; G0480

== ENCOUNTER 2024-10-05 14:43 | Inpatient (IN) | payer MEDICARE, MEDICAID, SELFPAY ==
[2024-10-05 14:43] VITALS: BP 123/79; PULSE 77; RESP 20; TEMP 36.6; O2SAT 97; BMI 36.2
[2024-10-05 18:10] VITALS: BP 123/100; PULSE 73; O2SAT 96
--- NOTE | 2024-10-05 18:26 | EKG12_ITS ---
Test Reason : EDEMA Blood Pressure : */* mmHG Vent. Rate : 76 BPM Atrial Rate : 76 BPM P-R Int : 228 ms QRS Dur : 84 ms QT Int : 364 ms P-R-T Axes : 65 81 13 degrees QTcB Int : 409 ms Sinus rhythm with 1st degree A-V block Low voltage QRS Borderline ECG Confirmed by MAGALY BUSTAMANTE, RON ([id number]), makeup editor BALWINDER BARONE ([id number]) on 10/08/2024 7:19:56 AM Referred By: Edmond March Confirmed By: RON MCKENZIE MD
--- NOTE | 2024-10-05 18:30 | EX.ED.DYSGE1 ---
HPI History of Present Illness Chief Complaint: Edema Narrative Narrative: Chief complaint and HPI: Bilateral peripheral edema and shortness of breath. 74-year-old male with past medical history of HTN, HLD, hypothyroidism, depression, diabetes presents for evaluation of bilateral lower extremity edema. Onset of symptoms the past 10 to 14 days. Patient states that he has gained 25 pounds over the last couple weeks. Patient has no previous diagnosis of CHF. PCP sent him over to the emergency department. Patient endorses orthopnea. Denies any fever, chills, chest pain, Pepe pain, nausea, vomiting. History of tobacco abuse. Review of systems: See HPI Medications: As listed on the chart Allergies: As listed on the chart PFSH: Per chart Vital signs: As listed on the chart. Reviewed. Physical exam: Gen: A&O x3, NAD Head: Normocephalic, atraumatic Eyes: No sclera icterus, conjunctiva clear ENT: Moist mucous membranes Neck: Trachea midline, No JVD CV: RRR, no murmurs, + 2 peripheral edema from the feet all the way up to the abdomen-anasarca Resp: Lungs diminished in the bilateral lower bases, mildly coarse GI: Abd soft, non-distended, non-tender, no r/r/g Musc: Full ROM, no deformity Skin: Warm, dry Neuro: Alert, oriented, grossly intact, sensation intact Psych: Cooperative, appropriate mood and affect [facility] Medical History (Updated 10/05/24 @ 20:[address] Bere Green MD) Anxiety and depression History of alcohol abuse Tobacco use BPH (benign prostatic hyperplasia) Neuropathy GERD (gastroesophageal reflux disease) Hypothyroidism COPD (chronic obstructive pulmonary disease) HLD (hyperlipidemia) Diabetes HTN (hypertension) Home Medications ?Medication ?Instructions ?Recorded ?Last Taken ?Type fenofibrate 150 mg capsule 160 mg PO DAILY 12/28/17 10/05/24 History (Lipofen) gabapentin 300 mg capsule 600 mg PO TID 12/28/17 10/05/24 History (Neurontin) levothyroxine 175 mcg tablet 175 mcg PO QHS 12/28/17 10/04/24 History lisinopril 20 mg tablet 20 mg PO DAILY 12/28/17 10/05/24 History multivitamin (Daily Multiple 1 ea PO DAILY 12/28/17 10/05/24 History tablet) omeprazole 40 mg capsule,delayed 40 mg PO DAILY 12/28/17 10/05/24 History release potassium chloride 10 mEq 10 meq PO DAILY 12/28/17 10/05/24 History tablet,extended release albuterol sulfate 90 mcg/actuation 2 puff inhalation Q6H PRN PRN 10/05/24 10/05/24 History aerosol inhaler wheezing atorvastatin 20 mg tablet 30 mg PO QHS cholesterol 10/05/24 10/04/24 History bupropion HCl 150 mg 24 hr tablet, 150 mg PO DAILY 10/05/24 10/05/24 History extended release fluoxetine 40 mg capsule 80 mg PO DAILY 10/05/24 10/05/24 History fluticasone fur. 100 mcg-umeclid 1 ea inhalation DAILY 10/05/24 10/05/24 History 62.5 mcg-vilant 25 mcg inhalat.powder (Trelegy Ellipta) naproxen 500 mg tablet 500 mg PO BID PRN PRN pain 10/05/24 Unknown History tamsulosin 0.4 mg capsule 0.4 mg PO QHS 10/05/24 10/04/24 History Allergy/AdvReac Type Severity Reaction Status Date / Time No Known Allergies Allergy Verified 10/05/24 14:43 Family History no significant family his Surgical History (Updated 10/05/24 @ 18:09 by Daisy Mitchell) H/O spinal fusion Hx of neck surgery Social History (Updated 10/05/24 @ 20:[address] Bere Green MD) Smoking Status: Current every day smoker tobacco type: cigarettes alcohol intake: former substance use type: does not use EXAM Physical Exam Const Vital Signs: 10/05/24 14:43 10/05/24 18:10 10/05/24 20:00 Temperature 97.9 F Temperature Source Temporal Pulse Rate 77 73 81 Respiratory Rate 20 H 17 Blood Pressure 123/79 H 123/100 H 133/83 H Blood Pressure Mean 93 107 99 Pulse Ox 97 96 92 Oxygen Delivery Method Room Air Room Air Room Air MDM MDM MDM Narrative Medical decision making narrative: 74-year-old male with past medical history of HTN, HLD, hypothyroidism, depression, diabetes presents for evaluation of bilateral lower extremity edema. Differential diagnosis includes but is not limited to CHF, electrolyte abnormality, PENELOPE, arrhythmia, uncontrolled hypothyroidism. Cardiac workup ordered. Will give Lasix once BMP completed. EKG and chest x-ray reviewed see below. CBC without leukocytosis. Patient has anemia with hemoglobin 11.3. Previous labs are from 2019. CMP with hyponatremia at 129. Will hold off on giving any fluids as patient is fluid overloaded. No PENELOPE. Lasix IV ordered. No transaminitis. Troponin flat x 2. Patient not having any chest pain. BNP unremarkable. TSH elevated at 16.600. Will add on free T4. Free T4 normal. Patient's symptoms are likely secondary to new onset heart failure with CHF exacerbation. Patient will require admission for diuresis and further cardiac workup with echocardiogram. Patient confirmed understanding the plan. Hospitalist accepted admission. EKG: Interpreted by me/EM physician: EKG shows sinus rhythm with first-degree AV block. No acute ischemic changes. Heart rate 76 Diagnostic: Interpreted by me/EM physician: Chest x-ray without pneumonia, large pleural effusion, pneumothorax. Has cardiomegaly. Impression: 1. CHF exacerbation with new diagnosis of heart failure 2. Hyponatremia 3. Hypothyroidism 4. Anemia Lab Data Labs: Laboratory Results - last 24 hr 10/05/24 18:27 WBC 9.7 RBC 3.49 L Hgb 11.3 L Hct 34.5 L MCV 98.9 H MCH 32.4 H MCHC 32.8 RDW Std Deviation 45.2 H RDW Coeff of Spike 12.5 Plt Count 366 MPV 8.9 Immature Gran % (Auto) 0.600 Neut % (Auto) 72.0 H Lymph % (Auto) 11.3 L Taney % (Auto) 10.7 H Eos % (Auto) 4.6 Baso % (Auto) 0.8 Absolute Neuts (auto) 7.0 Absolute Lymphs (auto) 1.10 Nucleated RBC % 0 Sodium 129 L Potassium 4.7 Chloride 97 L Carbon Dioxide 28.0 Anion Gap 5 BUN 15 Creatinine 1.30 Estim Creat Clear Calc 59.33 Est GFR (MDRD) Af Amer 70 Est GFR (MDRD) Non-Af 58 L BUN/Creatinine Ratio 11.5 Glucose 94 Calcium 9.1 Total Bilirubin 0.30 AST 25 ALT 28 Alkaline Phosphatase 64 Troponin I High Sens 51 B-Natriuretic Peptide 23.0 Total Protein 7.2 Albumin 3.3 Globulin 3.9 Albumin/Globulin Ratio 0.8 L TSH 16.600 H Free T4 1.08 Radiography Diagnostic Testing: Clinical Impression(s) from Imaging Studies Chest X-Ray 10/05/24 18:40 IMPRESSION: Right basilar opacity which may represent atelectasis or infiltrate. Cardiomegaly. Reading Location: [id number] Discharge Plan Disposition Disposition: Acute Care Hospital [facility] Discharge Date/Time: 10/05/24 21:15
[2024-10-05 18:37] LABS: Basophil# 0.08 X10^3/uL; Basophil% 0.8 % (0-1); Eosinophil# 0.45 X10^3/uL; Eosinophils% 4.6 % (0-5); Hematocrit 34.5 % (40-54); Hemoglobin 11.3 g/dL (13.0-16.5); Lymphocyte % 11.3 % (19-41); Mean Corp Hgb Conc 32.8 g/dL (32-36); Mean Corpuscular Hgb 32.4 pg (27.0-32.0); Mean Corpuscular Volume 98.9 fL (80-94); Mean Platelet Vol. 8.9 fl (6.2-12.0); Monocyte# 1.04 X10^3/uL; Monocyte% 10.7 % (0-10); NRBC Flagged by Analyzer 0 % (0-5); Neutrophil # 6.99 X10^3/uL (2.7-7.7); Platelet Count 366 K/mm3 (150-450); RBC Distribution Width CV 12.5 % (11.6-14.6); RBC Distribution Width SD 45.2 fl (35.1-43.9); Red Blood Count 3.49 M/mm3 (4.6-6.2); White Blood Count 9.7 K/mm3 (4.4-11.0)
--- NOTE | 2024-10-05 18:40 | RAD_ITS ---
PROCEDURE: CHEST PA AND LATERAL REASON FOR EXAM: Shortness of breath. TECHNIQUE: Frontal and lateral views of the chest. COMPARISON: None. FINDINGS: The heart is enlarged. The mediastinal contour is unremarkable. Right basilar opacity which may represent atelectasis or infiltrate. The bones are unremarkable. RAD/Chest PA and Lateral IMPRESSION: Right basilar opacity which may represent atelectasis or infiltrate. Cardiomegaly. Reading Location: [id number]
[2024-10-05 19:06] LABS: ALB/GLOB Ratio 0.8 RATIO (0.9-2.4); AST(SGOT) 25 U/L (15-37); Alanine Aminotransfer ALT/SGPT 28 U/L (16-61); Albumin, Serum 3.3 g/dL (3.2-5.0); Alkaline Phosphatase 64 U/L (45-117); Anion Gap 5 (5-15); BUN 15 mg/dL (7-18); BUN/Creat Ratio 11.5 RATIO (10-20); Calcium,Total 9.1 mg/dL (8.5-10.1); Chloride 97 mmol/L (98-107); EST Glomerular Filtration Rate 58 mL/min (>60); Est Glom Filt Rate - Afr Amer 70 mL/min (>60); Estimated Creatinine Clearance 59.33 ml/min; Globulin 3.9 g/dL (2.2-4.2); Glucose 94 mg/dL (74-106); Potassium 4.7 mmol/L (3.5-5.1); Protein, Total 7.2 g/dL (6.4-8.2); Sodium Level 129 mmol/L (136-145); Troponin-I HS (w/2H Reflex) 51 pg/mL (3.0-78.0)
[2024-10-05 19:56] LABS: T4 Free Direct 1.08 ng/dL (0.76-1.46)
[2024-10-05 20:00] VITALS: BP 133/83; PULSE 81; RESP 17; O2SAT 92
--- NOTE | 2024-10-05 20:03 | HP.PCM.HOS_ITS ---
HPI - General General Date of Admission: 10/05/24 Date of Service: 10/05/24 Chief Complaint: Dyspnea, weight gain, orthopnea, increased LE edema. 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 Patient also endorses orthopnea. He denies any recent upper respiratory type symptoms. Workup in the ED included T97.9, heart rate 77, BP 123/79, respiratory rate 20, 97% on room air at 1443 with most recent repeat vitals at 1810 heart rate 73, BP 123/100 noted to be 96% on room air, CBC with WC 9.7, hemoglobin 11.3, MCV 98.9, platelet 366 without marked shift, CMP with sodium 129, chloride 97, BUN/creatinine 15/1.30, GFR 58, hepatic profile unremarkable, troponin 51, BNP 23, TSH 16.6 however free T4 1.08, chest x-ray with right basilar opacity possibly atelectasis and cardiomegaly, EKG with sinus rhythm with first-degree AV block with no acute evidence of ischemia. In the ED patient administered Lasix 40 mg IV x 1. [facility] Medical History Anxiety and depression History of alcohol abuse Tobacco use BPH (benign prostatic hyperplasia) Neuropathy GERD (gastroesophageal reflux disease) Hypothyroidism COPD (chronic obstructive pulmonary disease) HLD (hyperlipidemia) Diabetes HTN (hypertension) Home Medications ?Medication ?Instructions ?Recorded ?Last Taken ?Type fenofibrate 150 mg capsule 160 mg PO DAILY 12/28/17 History (Lipofen) gabapentin 300 mg capsule 600 mg PO TID 12/28/1710/05 History (Neurontin) levothyroxine 175 mcg tablet 175 mcg PO QHS 12/28/17 0 10/04/24 History lisinopril 20 mg tablet 20 mg PO DAILY 12/28/1701/22 History multivitamin (Daily Multiple 1 ea PO DAILY 12/28/17 History tablet) omeprazole 40 mg capsule,delayed 40 mg PO DAILY 10/05/24 History release potassium chloride 10 mEq 10 meq PO DAILY 12/28/1701/22 History tablet,extended release albuterol sulfate 90 mcg/actuation 2 puff inhalation Q 6H PRN PRN 10/05/24 10/05/24 History aerosol inhaler wheezing atorvastatin 20 mg tablet 30 mg PO QHS cholesterol 01/2210/04/24 History bupropion HCl 150 mg 24 hr tablet, 150 mg PO DAILY 01/2210/05/24 History extended release fluoxetine 40 mg capsule 80 mg PO DAILY 10/05/2401/22 History fluticasone fur. 100 mcg-umeclid 1 ea inhalation DAILY 10/05/24 10/05/24 History 62.5 mcg-vilant 25 mcg inhalat.powder (Trelegy Ellipta) naproxen 500 mg tablet 500 mg PO BID PRN PRN pain 0 10/05/24 Unknown History tamsulosin 0.4 mg capsule 0.4 mg PO QHS 10/05/2410/04 History Allergy/AdvReac Type Severity Reaction Status Date / Time No Known Allergies Allergy Verified 10/05/24 14:43 Family History (Updated 10/06/24 @ 01:[address] Bere Green MD) Mother Heart disease Hypertension Father Heart disease Hypertension Family History no significant family his Surgical History H/O spinal fusion Hx of neck surgery Social History (Updated 10/06/24 @ 01:[address] Bere Green MD) household members: none Smoking Status: Current every day smoker tobacco type: cigarettes Smoking packs per day: 1 Smoking cigarettes per day: 20.0 alcohol intake: former details: Sober x 41 years (as of 10/05/24 admit). substance use type: does not use ROS ROS Narrative Admission Review of Systems: CONSTITUTIONAL: No weight loss, fever, chills. + Possible weight gain, weakness or fatigue. HEENT: Eyes: No visual loss, blurred vision, double vision or yellow sclerae. Ears, Nose, Throat: No hearing loss, sneezing, congestion, runny nose or sore throat. SKIN: No rash or itching, lesions, wounds. CARDIOVASCULAR: + Edema, possible weight gain, orthopnea. No chest pain, chest pressure or chest discomfort, palpitations, syncopal events. RESPIRATORY: + Dyspnea, worse with exertion. No marked cough, productive sputum, wheezing, hemoptysis. GASTROINTESTINAL: No anorexia, nausea, vomiting or diarrhea, abdominal pain, melena, BRBPR. GENITOURINARY: No dysuria, frequency, urgency or retention. NEUROLOGICAL: No headache, dizziness, syncope, paralysis, ataxia, numbness or tingling in the extremities, focal weakness, change in bowel or bladder control, seizure. MUSCULOSKELETAL: + muscle, back pain, joint pain or stiffness. HEMATOLOGIC: + Chronic anemia, easy bleeding/bruising. LYMPHATICS: No enlarged nodes. No history of splenectomy. PSYCHIATRIC: + History of anxiety and depression. ENDOCRINOLOGIC: No reports of sweating, cold or heat intolerance. No polyuria or polydipsia. ALLERGIES: No history of asthma, hives, eczema or rhinitis. Vital Signs Vital Signs Vital Signs: 10/05/24 14:43 10/05/24 18:10 Temperature 97.9 F Temperature Source Temporal Pulse Rate 77 73 Respiratory Rate 20 H Blood Pressure 123/79 H 123/100 H Blood Pressure Mean 93 107 Pulse Ox 97 96 Oxygen Delivery Method Room Air Room Air Weight Weight: 231 lb 7.766 oz Body Mass Index (BMI) 36.2 Physical Exam Narrative Physical Examination: General: Awake, alert, oriented x 3 and cooperative, seated upright in the ED bed, fatigued appearing. Skin: Normal color, normal turgor, no icterus, no cyanosis except occasional stage ecchymoses, bilateral lower extremity venous stasis skin changes. HEENT: AT/NC, EOMI, PERRLA, MMM, no carotid bruits, + JVD noted. Lungs: Diminished, greater bases, mildly increased respiratory rate but no distress, mild rales bilaterally, no rhonchi or wheezing. Heart: Regular rate and rhythm; no gallop, rub audible. Abdomen: Soft, obese, NTTP, distant normal BS, no obvious marked distention or HSM noted. Extremities: No cyanosis, no clubbing, significant pedal to proximal thigh to 3+ pitting edema bilaterally. Neurological: Patient awake, alert, oriented as noted cognitive function intact; pupils equally reactive to light and accommodation, cranial nerves grossly normal, moving all 4 extremities, no focal deficits, strength moderately to severely globally decreased secondary to acute presentation. Psychiatric: Affect appears fatigued, no acute evidence of depressive or anxiety feelings but does have underlying history. Results Lab / Micro Data 10/05/24 18:27 10/05/24 18:27 Labs: Laboratory Results - last 24 hr 10/05/24 18:27: WBC 9.7, RBC 3.49 L, Hgb 11.3 L, Hct 34.5 L, MCV 98.9 H, MCH 32.4 H, MCHC 32.8, RDW Std Deviation 45.2 H, RDW Coeff of Spike 12.5, Plt Count 366, MPV 8.9, Immature Gran % (Auto) 0.600, Neut % (Auto) 72.0 H, Lymph % (Auto) 11.3 L, [place] % (Auto) 10.7 H, Eos % (Auto) 4.6, Baso % (Auto) 0.8, Absolute Neuts (auto) 7.0, Absolute Lymphs (auto) 1.10, Nucleated RBC % 0, Sodium 129 L, Potassium 4.7, Chloride 97 L, Carbon Dioxide 28.0, Anion Gap 5, BUN 15, Creatinine 1.30, Estim Creat Clear Calc 59.33, Est GFR (MDRD) Af Amer 70, Est GFR (MDRD) Non-Af 58 L, BUN/Creatinine Ratio 11.5, Glucose 94, Calcium 9.1, Total Bilirubin 0.30, AST 25, ALT 28, Alkaline Phosphatase 64, Troponin I High Sens 51, B-Natriuretic Peptide 23.0, Total Protein 7.2, Albumin 3.3, Globulin 3.9, Albumin/Globulin Ratio 0.8 L, TSH 16.600 H, Free T4 1.08 Imaging Radiology Impression Chest X-Ray 10/05/24 18:40 IMPRESSION: Right basilar opacity which may represent atelectasis or infiltrate. Cardiomegaly. 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 #1. Acute Decompensated HF, unclear type: Patient administered IV lasix in the ED, will admit to PCU, maintain on cardiac telemetry obtain cardiac enzyme series, obtain serial EKGs, continue IV lasix diuresis, monitor I/Os, maintain on intake restriction, continue medical therapy with aspirin, statin, MARIANNA inhibitor, adding low-dose beta-purnima, IV Lasix, TSH elevated however free T4 normal, will obtain magnesium level. Echocardiogram requested. Will place rest with lower extremity elevation as able. Procalcitonin requested to be cautious. #2. Chronic COPD: Will hold home inhaler in the interim transition to ATC budesonide therapy, PRN albuterol, HOB, IS parameters. #3. Diabetes mellitus type II with chronic neuropathy: Hold oral home regimen, ADA diet, accu checks w/ ISS, continue home gabapentin regimen. #4. Hypertension: Continue home regimen including lisinopril, IV Lasix as noted, initiate low-dose metoprolol cautiously given underlying COPD, PRN hydralazine. #5. Hyperlipidemia: We will continue patient on statin and fenofibrate regimen. #6. Hypothyroidism: We will continue patient home levothyroxine regimen, TSH elevated however free T4 normal range, subclinical, encourage continued outpatient evaluation repeat testing. #7. Former alcohol abuse: Encouraged continued sobriety. #8. GERD: We will continue patient on PPI. #9. Obesity: Weight loss and lifestyle changes encouraged. #10. BPH with obstructive pathology: Continue patient home Flomax regimen. #11. Tobacco Abuse: Encouraged cessation, inpatient consultation per RT, NR if desired. #12. Anxiety and depression: We will continue patient home fluoxetine and bupropion regimen. #13. DVT prophylaxis: Lovenox. #14. CODE status: Patient does not have healthcare power of immigration attorney or living will in place but notes if it was necessary he would have his son Rob to be his medical decision-maker if needed. Discussed CODE status at length including difference between FULL code, DNR-CCA and DNR-CC status. Following discussions about the differences in these status, requested Full Code status. Advanced Care Planning Face to Face Time: 16 minutes. Charges/Coding Visit Charges Inpatient E&M: 10128 Init Hosp L3 Procedures Hospitalists Procedures: 20458 Advncd Care Plan 30 Min
[2024-10-05 20:31] LABS: Reflex Troponin-HS? (from REC) Y
[2024-10-05 21:00] LABS: Troponin-I HS 49 pg/mL (3.0-78.0)
[2024-10-05] MEDS: Furosemide 40 MG/4 ML Vial IV (21:05)
[2024-10-05 21:08] VITALS: BP 146/72; PULSE 85; RESP 20; TEMP 36.9; O2SAT 94
[2024-10-05 21:23] LABS: Magnesium 1.9 mg/dL (1.6-2.6)
--- NOTE | 2024-10-05 21:32 | ECHOD_ITS ---
Reason For Study: CONGESTIVE HEART FAILURE Procedure This was a 2D Doppler, Color Flow transthoracic echocardiogram. Exam performed portable in patient room. Left Ventricle Normal LV size. Left ventricular systolic function is normal. The left ventricular ejection fraction is 65 %. No regional wall motion abnormalities noted. Right Ventricle Normal RV size. Normal systolic function. Atria Normal left atrium. Normal right atrium. Mitral Valve Normal mitral valve. Tricuspid Valve Normal tricuspid valve. Aortic Valve Trisinus/trileaflet aortic valve. Mild focal aortic valve calcification. Pulmonic Valve Normal pulmonic valve. Great Vessels Normal aortic root. The pulmonary artery is normal size. Inferior vena cava collapse with respiration. Pericardium/Pleural No pericardial effusion. MMode/2D Measurements & Calculations LVIDd: 4.9 cm IVSd: 1.2 cm LVOT diam: 2.1 cm LVIDs: 3.1 cm LVPWd: 1.0 cm LVOT area: 3.3 cm2 RVDd: 3.8 cm FS: 36.2 % _ asc Aorta Diam: 3.5 cm LAV(MOD-bp): 45.4 ml LVAd ap4: 23.9 cm2 LAV(MOD-bp) Indexed: 21.3 ml/m2 LVLd ap4: 7.6 cm LAV(MOD-sp2): 50.2 ml EDV(MOD- sp4): 61.1 ml LAV(MOD-sp4): 43.0 ml EDV(sp4- el): 63.9 ml LVAs ap4: 12.9 cm2 LVLs ap4: 6.2 cm ESV(MOD- sp4): 22.6 ml ESV(sp4- el): 22.5 ml EF(MOD- sp4): 63.0 % EF(sp4- el): 64.8 % _ LVAd ap2: 21.9 cm2 SV(MOD-sp4): 38.5 ml SV(MOD- sp2): 32.5 ml LVLd ap2: 7.3 cm SI(MOD-sp4): 18.1 ml/m2 SI(MOD- sp2): 15.2 ml/m2 EDV(MOD-sp2): 53.9 ml EDV(sp2-el): 55.5 ml LVAs ap2: 12.7 cm2 LVLs ap2: 6.4 cm ESV(MOD-sp2): 21.3 ml ESV(sp2-el): 21.3 ml EF(MOD-sp2): 60.4 % _ SV(sp4-el): 41.4 ml Ao sinus diam: 3.[address] Junction: 2.9 cm _ LA dimension(2D): 4.3 cm LA A4 area: 16.3 cm2 RA A4 area: 12.3 cm2 _ TAPSE: 1.5 cm Time Measurements MV dec time: 0.18 sec Doppler Measurements & Calculations MV E max crispin: 74.6 cm/sec Lat Peak E' Crispin: 12.6 cm/sec Med Peak E' Crispin: 10.6 cm/sec MV A max crispin: 66.6 cm/sec E/E' lat: 5.9 E/E' med: 7.1 MV E/A: 1.1 _ MV dec slope: 407.7 cm/sec2 Ao V2 max: 148.6 cm/sec LV V1 max: 86.1 cm/sec Ao max P.8 mmHg LV V1 max P.0 mmHg Ao V2 mean: 108.6 cm/sec LV V1 mean P.7 mmHg Ao mean P.1 mmHg LV V1 mean: 63.2 cm/sec Ao V2 VTI: 31.3 cm LV V1 VTI: 19.1 cm AV (velocity ratio): 0.61 PAMELLA(I,D): 2.0 cm2 PAMELLA(V,D): 1.9 cm2 _ SV(LVOT): 63.9 ml PA V2 max: 92.2 cm/sec ECHO/Echo Complete Interpretation Summary Normal LV size. Left ventricular systolic function is normal. The left ventricular ejection fraction is 65 %. The global longitudinal strain is normal. The global longitudinal strain = -17. 4 % (normal). Ordering Physician: Bere Green Referring Physician: Edmond March Performed By: Shelia Sam RDCS
[2024-10-05 21:33] VITALS: BP 146/70; PULSE 80; RESP 18; TEMP 36.6; O2SAT 94; BMI 35.6
--- NOTE | 2024-10-05 21:33 | CASEMGMT ---
Care Management Face to Face with patient for initial transition planning/care coordination assessment in the ED.? This credit underwriter introduced self and role at [facility]. Patient alert and oriented. Patient willing to participate in assessment and is able to answer all questions appropriately.? Care providers, pharmacy, and demographics verified. Admitting Diagnosis: ?CHF Other diagnosis history: Diabetes, HTN PCP: Marylou Specialists: cotton feeder Preferred Pharmacy: [facility]? Insurance: ?[facility] Prescription Benefit:?yes Living Will/HPOA: ?None, uncertain if he wishes to complete one LNOK: Son Living Arrangements: ?Lives alone in first floor apartment, states he is able to complete all ADLs and IADLs but has been ?slacking off? on taking care of self. Transportation: DME: cane, rollator, shower bench HHC: [facility], has aide 2x per week , 3 hours a day. SNF/Rehab: none Community Resources: none Behavioral Health History: Depression, recently went back on his medication Patient goals: Patient wishes to discharge home Disposition Plan: admission to acute; RN CM/SW to follow for discharge planning needs that may arise. Vivian Durand, [place] MANAGER, PACKING MACHINE PILOT CAN ROUTER
[2024-10-05] MEDS: Gabapentin 600 MG Tablet PO (23:19)
[2024-10-05] MEDS: Atorvastatin Calcium 10 MG Tablet 30 MG PO (23:20)
[2024-10-05] MEDS: Tamsulosin HCl 0.4 MG Capsule PO (23:20)
[2024-10-05 23:21] VITALS: PULSE 88
[2024-10-05] MEDS: Metoprolol Tartrate 25 MG Tablet 12.5 MG PO (23:21)
[2024-10-05] MEDS: Levothyroxine 175 MCG Tablet PO (23:23)
[2024-10-05 23:46] LABS: Bedside Glucose 104 mg/dL (74-106)
[2024-10-06] VITALS (13 sets, daily range): BP systolic 104–143; BP diastolic 56–108; PULSE 60–90; RESP 12–22; TEMP 36.7–37.1; O2SAT 2–99; BMI 35.6
[2024-10-06 01:01] LABS: Troponin-I HS 49 pg/mL (3.0-78.0)
[2024-10-06 05:26] LABS: Absolute Lymphocyte Count 0.87 X10^3/uL (0.83-4.51); Absolute Neutrophil Count 6.9 X10^3/uL (2.0-7.7); Basophil# 0.06 X10^3/uL; Basophil% 0.7 % (0-1); Eosinophil# 0.29 X10^3/uL; Eosinophils% 3.2 % (0-5); Hematocrit 32.6 % (40-54); Hemoglobin 10.8 g/dL (13.0-16.5); Lymphocyte # 0.87 X10^3/ul (0.83-4.51); Lymphocyte % 9.5 % (19-41); Mean Corp Hgb Conc 33.1 g/dL (32-36); Mean Corpuscular Hgb 32.2 pg (27.0-32.0); Mean Corpuscular Volume 97.3 fL (80-94); Monocyte# 1.01 X10^3/uL; NRBC Flagged by Analyzer 0 % (0-5); Neutrophil # 6.87 X10^3/uL (2.7-7.7); Neutrophil % 75.1 % (47-70); Platelet Count 346 K/mm3 (150-450); RBC Distribution Width CV 12.4 % (11.6-14.6); RBC Distribution Width SD 44.3 fl (35.1-43.9); Red Blood Count 3.35 M/mm3 (4.6-6.2); White Blood Count 9.2 K/mm3 (4.4-11.0)
[2024-10-06 06:27] LABS: ALB/GLOB Ratio 0.8 RATIO (0.9-2.4); AST(SGOT) 30 U/L (15-37); Alanine Aminotransfer ALT/SGPT 26 U/L (16-61); Alkaline Phosphatase 54 U/L (45-117); Anion Gap 6 (5-15); BUN 15 mg/dL (7-18); BUN/Creat Ratio 11.7 RATIO (10-20); Calcium,Total 8.7 mg/dL (8.5-10.1); Chloride 94 mmol/L (98-107); Cholesterol 95 mg/dL (200); Creatinine, Serum 1.28 mg/dL (0.70-1.30); EST Glomerular Filtration Rate 59 mL/min (>60); Est Glom Filt Rate - Afr Amer 71 mL/min (>60); Estimated Creatinine Clearance 59.69 ml/min; Globulin 3.7 g/dL (2.2-4.2); Glucose 103 mg/dL (74-106); High Density Lipoprotein 38 mg/dL; Potassium 4.2 mmol/L (3.5-5.1); Protein, Total 6.7 g/dL (6.4-8.2); Sodium Level 128 mmol/L (136-145); Triglycerides 107 mg/dL; Very Low Density Lipoprotein 21 mg/dL (5-40)
[2024-10-06] MEDS: Gabapentin 600 MG Tablet PO ×3 (06:36→21:58)
[2024-10-06 06:57] LABS: Bedside Glucose 92 mg/dL (74-106)
[2024-10-06] MEDS: Budesonide Respules 0.5 MG/2 ML AMPUL.NEB. INHALATION (07:30)
[2024-10-06] MEDS: Potassium Chloride Oral Tablet 10 MEQ PO (09:25)
[2024-10-06] MEDS: buPROPion (XL) 150 MG TABLET.XL PO (09:25)
[2024-10-06] MEDS: Enoxaparin 40 MG/0.4 ML Syringe SC (09:25)
[2024-10-06] MEDS: Aspirin 81 MG TAB.CHEW PO (09:25)
[2024-10-06] MEDS: Metoprolol Tartrate 25 MG Tablet 12.5 MG PO ×2 (09:25→21:58)
[2024-10-06] MEDS: Furosemide 40 MG/4 ML Vial IV ×2 (09:25→16:20)
[2024-10-06] MEDS: Fenofibrate 145 MG Tablet PO (09:25)
[2024-10-06] MEDS: Lisinopril 20 MG Tablet PO (09:25)
[2024-10-06] MEDS: Pantoprazole Sodium 40 MG Tablet PO (09:25)
[2024-10-06] MEDS: Acetaminophen 325 MG Tablet 650 MG PO (09:26)
[2024-10-06 11:48] LABS: Bedside Glucose 103 mg/dL (74-106)
--- NOTE | 2024-10-06 11:53 | CASEMGMT ---
Addendum entered by Michelle Eubanks 10/06/24 13:02: SW spoke with [facility] CM. Requested assistance for pt to obtain a new cell phone and dentist in the area. Notified CM that this worker provided pt with transportation resources. CM appreciative and will follow. Original Note: Social Work SDOH Assessment completed. See for details. SW spoke with pt further about other needs. Patient does not have a phone anymore. He reports to losing it spring and tried completing a new application ([employer] free phone). Pt would like a new phone. SW to notify [facility] to assist. Contact information updated in chart. SW inquired about emergency contacts. Pt requested son is added, but unsure his phone number. SW contacted [facility] to assist and obtained phone number. Contact information updated in chart. SW spoke with pt about wraspy voice. Pt reports to it coming and going. SW educated to outpatient ST or to attend to learn exercises and complete independently. Pt denied OP ST, and reports to not being compliant with exercies and denies referral. SW educated to notifying PCP for a referral, if he changes his mind. Pt expressed understanding. SW inquired about use of O2 and pt appeared SOB after discussion. O2 was on in pt room but pt was not wearing it. Pt denied use of O2. SW updated PCU CM to monitor. Pt would also like to find a dentist that is [place] with his insurance. SW to also notify CM for assistance. SW left VM with Counseling CM, requesting return phone call for follow up. Michelle Eubanks DIESEL ENGINE TESTER ATTACHER
--- NOTE | 2024-10-06 12:29 | CASEMGMT ---
Social Work Pt has services through [facility]. Pt's caser is Vivi Swenson (ph [phone], fax [phone]). Pt has an emergency response service, 10 home delivered meals per week, and 6 hours of MICROPALEONTOLOGIST per week from [facility]. Services are on Thursday and from -12 and aids assist with IADLs, pt is able to provide own ADLs. SW will update [facility] at time of discharge. NIRU Alegre
--- NOTE | 2024-10-06 13:00 | PCM.PN.HOSP ---
Reason for Visit Reason for Visit: Diagnoses Heart failure, unspecified (10/05/24) Subjective Subjective Patient is a 74-year-old gentleman who presented with increasing weight gain and bipedal edema. An assessment of acute congestive heart failure made admitted to a monitored bed for subsequent management Objective Data Objective Data Vital Signs: Vital Signs Temp Pulse Resp BP Pulse Ox O2 Del Method O2 Flow Rate 98.7 F 75 20 H 143/108 H 95 Nasal Cannula 2 10/06/24 09:20 10/06/24 09:25 10/06/24 09:20 10/06/24 09:20 10/06/24 10:11 10/06/24 09:30 10/06/24 10:11 Oxygen Flow Rate (L/min) 2 Oxygen Delivery Method Nasal Cannula Weight: 103.1 kg Body Mass Index (BMI) 35.6 Intake & Output: Intake and Output for Last 24 Hours 10/04/24 10/05/24 10/06/24 23:59 23:59 23:59 Intake Total 100 / 100 Output Total 600 / 600 Balance -500 / -500 Lab / Micro Data 10/06/24 05:00 10/06/24 05:00 Labs: Laboratory Results - last 24 hr 10/05/24 18:27: WBC 9.7, RBC 3.49 L, Hgb 11.3 L, Hct 34.5 L, MCV 98.9 H, MCH 32.4 H, MCHC 32.8, RDW Std Deviation 45.2 H, RDW Coeff of Spike 12.5, Plt Count 366, MPV 8.9, Immature Gran % (Auto) 0.600, Neut % (Auto) 72.0 H, Lymph % (Auto) 11.3 L, [place] % (Auto) 10.7 H, Eos % (Auto) 4.6, Baso % (Auto) 0.8, Absolute Neuts (auto) 7.0, Absolute Lymphs (auto) 1.10, Nucleated RBC % 0, Sodium 129 L, Potassium 4.7, Chloride 97 L, Carbon Dioxide 28.0, Anion Gap 5, BUN 15, Creatinine 1.30, Estim Creat Clear Calc 59.33, Est GFR (MDRD) Af Amer 70, Est GFR (MDRD) Non-Af 58 L, BUN/Creatinine Ratio 11.5, Glucose 94, Calcium 9.1, Total Bilirubin 0.30, AST 25, ALT 28, Alkaline Phosphatase 64, Troponin I High Sens 51, B-Natriuretic Peptide 23.0, Total Protein 7.2, Albumin 3.3, Globulin 3.9, Albumin/Globulin Ratio 0.8 L, TSH 16.600 H, Free T4 1.08 10/05/24 20:35: Magnesium 1.9, Troponin I High Sens 49 10/05/24 23:28: POC Glucose 104 10/06/24 00:35: Troponin I High Sens 49 10/06/24 05:00: WBC 9.2, RBC 3.35 L, Hgb 10.8 L, Hct 32.6 L, MCV 97.3 H, MCH 32.2 H, MCHC 33.1, RDW Std Deviation 44.3 H, RDW Coeff of Spike 12.4, Plt Count 346, MPV 9.0, Immature Gran % (Auto) 0.500, Neut % (Auto) 75.1 H, Lymph % (Auto) 9.5 L, [place] % (Auto) 11.0 H, Eos % (Auto) 3.2, Baso % (Auto) 0.7, Absolute Neuts (auto) 6.9, Absolute Lymphs (auto) 0.87, Nucleated RBC % 0, Sodium 128 L, Potassium 4.2, Chloride 94 L, Carbon Dioxide 28.0, Anion Gap 6, BUN 15, Creatinine 1.28, Estim Creat Clear Calc 59.69, Est GFR (MDRD) Af Amer 71, Est GFR (MDRD) Non-Af 59 L, BUN/Creatinine Ratio 11.7, Glucose 103, Calcium 8.7, Total Bilirubin 0.30, AST 30, ALT 26, Alkaline Phosphatase 54, Total Protein 6.7, Albumin 3.0 L, Globulin 3.7, Albumin/Globulin Ratio 0.8 L, Triglycerides 107, Cholesterol 95, LDL Cholesterol 36, VLDL Cholesterol 21, HDL Cholesterol 38 L 10/06/24 06:35: POC Glucose 92 10/06/24 11:29: POC Glucose 103 Radiography Diagnostic Testing: Radiology Impression Chest X-Ray 10/05/24 18:40 IMPRESSION: Right basilar opacity which may represent atelectasis or infiltrate. Cardiomegaly. Reading Location: [facility] Physical Exam Narrative GENERAL: cooperative HEENT: Atraumatic; normocephalic EYES; Anicteric, Normal Conjunctiva NECK; supple, normal thyroid, RESPIRATORY: Diminished to auscultation CARDIOVASCULAR: Regular S1 S2, GI: soft, normoactive bowel sounds, : No Renal angle tenderness; EXTREMITIES: bipedal edema, no clubbing, MUSCULOSKELETAL: no muscle wasting NEURO: Awake; no lateralizing signs. SKIN: No Rash PSYCH; Flat affect Assessment & Plan Assessment/Plan (1) Acute exacerbation of chronic heart failure: PLAN: Plan Patient is a 74-year-old gentleman who presented with increasing weight gain and bipedal edema. An assessment of acute congestive heart failure made admitted to a monitored bed for subsequent management 1. Acute hypoxia Secondary to acute congestive heart failure patient presents supplemental oxygen with treatment of the underlying etiology 2. Acute congestive heart failure with preserved ejection fraction ? 2D echo obtained on admission demonstrated EF of 65%. Patient admitted to monitored bed manage strict input and output, daily weight, fluid restriction as well as furosemide 3. COPD ? Currently not in exacerbation aerosol treatment as needed 4. Dyslipidemia ?Patient is on statin therapy, continued at home dose 5. Hypertension ? Blood pressure controlled, home medications continued with dose adjustment as needed 6. Hypothyroidism ? Patient is on levothyroxine home dose continued 7. GERD ? Patient is on PPI 8. Class II obesity with BMI of 36 ? Complicating care weight loss advised 9. Peripheral neuropathy ? Patient is on gabapentin 10. Depression with anxiety ? Patient is on fluoxetine did continue 11. DVT prophylaxis ? On enoxaparin 12. Tobacco dependence ? Counseled on cessation, offered nicotine patch for tobacco cravings Time spent in the patient's overall evaluation,decision-making process, review of diagnostic data, adjustment of management, discussion with other providers, nursing nursing and ancillary staff involved in patient's care documentation, 50 Minutes Charges/Coding Visit Charges Inpatient E&M: 51297 Subs Hosp L3
--- NOTE | 2024-10-06 15:55 | CHAPLAIN ---
Type of Pastoral Visit _x__ Initial Visit ___ Follow-up Visit ___ On-call Visit ___ General Patient Visit ___ Spiritual Assessment ___ Family Conference ___ Bereavement ___ Rapid Response ___ Code Blue ___ Other (describe below) Pastoral Care Referral From _x__ Patient ___ Family ___ Nurse ___ Physician ___ Rifle Case Repairer ___ Developmental Behavioral Physician ___ Other (describe below) Sacrament/Intervention _x__ Active listening ___ Anointing ___ Jew ___ Bereavement ___ Communion _x__ Codi exploration ___ _x__ Life review _x__ Prayer ___ Reconciliation ___ Sacrament of Sick _x__ Supportive presence ___ Wedding ___ Other (describe below) Pastoral Comments patient welcomes the visit of this ekg tech by saying I agreed to let you come in case they told me that I had only a short time to live knowing then that I would have some questions to ask; pt says they haven't told me that I have only a short time to live; this ekg tech asked spiritual and emotional questions concerning face life challenges and codi issues; 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
[2024-10-06] MEDS: 0.9% Saline Lock 10 ML Syringe IV (16:20)
[2024-10-06 20:46] LABS: Bedside Glucose 120 mg/dL (74-106)
[2024-10-06] MEDS: Tamsulosin HCl 0.4 MG Capsule PO (21:56)
[2024-10-06] MEDS: Atorvastatin Calcium 10 MG Tablet 30 MG PO (21:57)
[2024-10-06] MEDS: Levothyroxine 175 MCG Tablet PO (22:01)
[2024-10-06 22:08] LABS: Bedside Glucose 92 mg/dL (74-106)
[2024-10-07] VITALS (9 sets, daily range): BP systolic 107–146; BP diastolic 61–92; PULSE 62–102; RESP 14–18; TEMP 36.3–36.8; O2SAT 90–97; BMI 35.4
[2024-10-07 05:22] LABS: Absolute Lymphocyte Count 1.06 X10^3/uL (0.83-4.51); Absolute Neutrophil Count 4.2 X10^3/uL (2.0-7.7); Basophil# 0.05 X10^3/uL; Basophil% 0.7 % (0-1); Eosinophil# 0.45 X10^3/uL; Eosinophils% 6.6 % (0-5); Hematocrit 33.1 % (40-54); Hemoglobin 10.4 g/dL (13.0-16.5); Lymphocyte # 1.06 X10^3/ul (0.83-4.51); Lymphocyte % 15.5 % (19-41); Mean Corp Hgb Conc 31.4 g/dL (32-36); Mean Corpuscular Volume 98.5 fL (80-94); Mean Platelet Vol. 8.8 fl (6.2-12.0); Monocyte# 1.01 X10^3/uL; Monocyte% 14.7 % (0-10); NRBC Flagged by Analyzer 0 % (0-5); Neutrophil # 4.22 X10^3/uL (2.7-7.7); Neutrophil % 61.5 % (47-70); Platelet Count 323 K/mm3 (150-450); RBC Distribution Width CV 12.4 % (11.6-14.6); RBC Distribution Width SD 45.2 fl (35.1-43.9); Red Blood Count 3.36 M/mm3 (4.6-6.2); White Blood Count 6.9 K/mm3 (4.4-11.0)
[2024-10-07 05:48] LABS: Anion Gap 7 (5-15); BUN 19 mg/dL (7-18); BUN/Creat Ratio 11.5 RATIO (10-20); Calcium,Total 8.4 mg/dL (8.5-10.1); Chloride 88 mmol/L (98-107); Creatinine, Serum 1.65 mg/dL (0.70-1.30); EST Glomerular Filtration Rate 44 mL/min (>60); Est Glom Filt Rate - Afr Amer 53 mL/min (>60); Estimated Creatinine Clearance 46.31 ml/min; Glucose 98 mg/dL (74-106); Phosphorus 4.3 mg/dL (2.5-4.9); Potassium 4.1 mmol/L (3.5-5.1); Sodium Level 124 mmol/L (136-145)
[2024-10-07] MEDS: Gabapentin 600 MG Tablet PO ×3 (06:29→22:33)
[2024-10-07 06:48] LABS: Bedside Glucose 100 mg/dL (74-106)
[2024-10-07] MEDS: Budesonide Respules 0.5 MG/2 ML AMPUL.NEB. INHALATION ×2 (06:48→19:43)
--- NOTE | 2024-10-07 10:03 | PCM.PN.HOSP ---
Reason for Visit Reason for Visit: Diagnoses Heart failure, unspecified (10/05/24) Subjective Subjective Patient seen swelling involving both lower extremities persist. Patient kidney function did worsen. Decreased creatinine as well as sodium Objective Data Objective Data Vital Signs: Vital Signs Temp Pulse Resp BP Pulse Ox O2 Del Method O2 Flow Rate 97.4 F L 65 16 107/68 90 Room Air 2 10/07/24 02:22 10/07/24 06:48 10/07/24 06:48 10/07/24 02:22 10/07/24 06:48 10/07/24 06:48 10/06/24 19:58 Oxygen Flow Rate (L/min) 2 Oxygen Delivery Method Room Air Weight: 102.6 kg Body Mass Index (BMI) 35.4 Intake & Output: Intake and Output for Last 24 Hours 10/05/24 10/06/24 10/07/24 23:59 23:59 23:59 Intake Total 100 / 100 Output Total 600 / 600 Balance -500 / -500 Lab / Micro Data 10/07/24 05:05 10/07/24 05:05 Labs: Laboratory Results - last 24 hr 10/06/24 11:29: POC Glucose 103 10/06/24 16:10: POC Glucose 120 H 10/06/24 21:48: POC Glucose 92 10/07/24 05:05: WBC 6.9, RBC 3.36 L, Hgb 10.4 L, Hct 33.1 L, MCV 98.5 H, MCH 31.0, MCHC 31.4 L D, RDW Std Deviation 45.2 H, RDW Coeff of Spike 12.4, Plt Count 323, MPV 8.8, Immature Gran % (Auto) 1.000 H, Neut % (Auto) 61.5, Lymph % (Auto) 15.5 L, [place] % (Auto) 14.7 H, Eos % (Auto) 6.6 H, Baso % (Auto) 0.7, Absolute Neuts (auto) 4.2, Absolute Lymphs (auto) 1.06, Nucleated RBC % 0, Sodium 124 L, Potassium 4.1, Chloride 88 L, Carbon Dioxide 29.0, Anion Gap 7, BUN 19 H, Creatinine 1.65 H, Estim Creat Clear Calc 46.31, Est GFR (MDRD) Af Amer 53 L, Est GFR (MDRD) Non-Af 44 L, BUN/Creatinine Ratio 11.5, Glucose 98, Calcium 8.4 L, Phosphorus 4.3, Magnesium 2.0 10/07/24 06:28: POC Glucose 100 Radiography Diagnostic Testing: Radiology Impression Echocardiogram 10/05/24 21:32 Interpretation Summary Normal LV size. Left ventricular systolic function is normal. The left ventricular ejection fraction is 65 %. The global longitudinal strain is normal. The global longitudinal strain = -17.4 % (normal). Ordering Physician: Bere Green Referring Physician: Edmond March Performed By: Shelia Sam RDCS Physical Exam Narrative GENERAL: cooperative HEENT: Atraumatic; normocephalic EYES; Anicteric, Normal Conjunctiva NECK; supple, normal thyroid, RESPIRATORY: Diminished to auscultation CARDIOVASCULAR: Regular S1 S2, GI: soft, normoactive bowel sounds, : No Renal angle tenderness; EXTREMITIES: bipedal edema, no clubbing, MUSCULOSKELETAL: no muscle wasting NEURO: Awake; no lateralizing signs. SKIN: No Rash PSYCH; Flat affect Assessment & Plan Assessment/Plan (1) Acute exacerbation of chronic heart failure: PLAN: Plan Patient is a 74-year-old gentleman who presented with increasing weight gain and bipedal edema. An assessment of acute congestive heart failure made admitted to a monitored bed for subsequent management 1. Acute hypoxia Secondary to acute congestive heart failure patient presents supplemental oxygen with treatment of the underlying etiology ? 10/07/2024; patient has been weaned off oxygen 2. Acute congestive heart failure with preserved ejection fraction ? 2D echo obtained on admission demonstrated EF of 65%. Patient admitted to monitored bed manage strict input and output, daily weight, fluid restriction as well as furosemide ?Decrease patient furosemide dose given worsening kidney function 3. COPD ? Currently not in exacerbation aerosol treatment as needed 4. Dyslipidemia ?Patient is on statin therapy, continued at home dose 5. Hypertension ? Blood pressure controlled, home medications continued with dose adjustment as needed 6. Hypothyroidism ? Patient is on levothyroxine home dose continued 7. GERD ? Patient is on PPI 8. Class II obesity with BMI of 36 ? Complicating care weight loss advised 9. Peripheral neuropathy ? Patient is on gabapentin 10. Depression with anxiety ? Patient is on fluoxetine did continue 11. DVT prophylaxis ? On enoxaparin 12. Tobacco dependence ? Counseled on cessation, offered nicotine patch for tobacco cravings 13. Hyponatremia ? Multifactorial including fluid overload status. Do also suspect component of medication induced NSAID including fluoxetine. Monitoring with daily BMPs. Time spent in the patient's overall evaluation,decision-making process, review of diagnostic data, adjustment of management, discussion with other providers, nursing nursing and ancillary staff involved in patient's care documentation, 40 minutes Charges/Coding Visit Charges Inpatient E&M: 16015 Subs Hosp L2
[2024-10-07] MEDS: Potassium Chloride Oral Tablet 10 MEQ PO (10:17)
[2024-10-07] MEDS: Pantoprazole Sodium 40 MG Tablet PO (10:18)
[2024-10-07] MEDS: Lisinopril 20 MG Tablet PO (10:18)
[2024-10-07] MEDS: buPROPion (XL) 150 MG TABLET.XL PO (10:18)
[2024-10-07] MEDS: Fenofibrate 145 MG Tablet PO (10:18)
[2024-10-07] MEDS: Aspirin 81 MG TAB.CHEW PO (10:19)
[2024-10-07] MEDS: Enoxaparin 40 MG/0.4 ML Syringe SC (10:20)
[2024-10-07] MEDS: Metoprolol Tartrate 25 MG Tablet 12.5 MG PO ×2 (10:20→22:33)
[2024-10-07] MEDS: Sodium Chloride 1 GM Tablet PO ×2 (11:48→22:33)
--- NOTE | 2024-10-07 14:11 | CASEMGMT ---
Social Work Per physician, pt may be ready for discharge tomorrow. SW met with pt who confirms he feels comfortable returning home tomorrow with resumption of services through [facility]. Pt has left a VM with his [facility] for [facility] home. If CM is unable to transport, Pt can utilize [facility] through insurance. Information listed on Green Sheet to facilitate weekend discharge. Pt currently is not using oxygen and does not have home oxygen. If home oxygen is needed, pt is agreeable to utilize [employer]. RNCM joselyn. NIRU Alegre
[2024-10-07] MEDS: Levothyroxine 175 MCG Tablet PO (22:33)
[2024-10-07] MEDS: Tamsulosin HCl 0.4 MG Capsule PO (22:33)
[2024-10-07] MEDS: Atorvastatin Calcium 10 MG Tablet 30 MG PO (22:33)
[2024-10-07 23:16] LABS: Bedside Glucose 115 mg/dL (74-106)
[2024-10-08] VITALS (7 sets, daily range): BP systolic 107–109; BP diastolic 63–78; PULSE 60–65; RESP 16–20; TEMP 35.9–36.6; O2SAT 92–96; BMI 35.0
[2024-10-08 02:49] LABS: Bedside Glucose 97 mg/dL (74-106)
[2024-10-08 04:14] LABS: Bedside Glucose 103 mg/dL (74-106)
[2024-10-08 06:07] LABS: Absolute Lymphocyte Count 1.12 X10^3/uL (0.83-4.51); Absolute Neutrophil Count 3.9 X10^3/uL (2.0-7.7); Basophil# 0.06 X10^3/uL; Basophil% 0.9 % (0-1); Eosinophil# 0.53 X10^3/uL; Hematocrit 32.7 % (40-54); Hemoglobin 10.4 g/dL (13.0-16.5); Lymphocyte # 1.12 X10^3/ul (0.83-4.51); Lymphocyte % 16.9 % (19-41); Mean Corp Hgb Conc 31.8 g/dL (32-36); Mean Corpuscular Hgb 31.1 pg (27.0-32.0); Mean Corpuscular Volume 97.9 fL (80-94); Mean Platelet Vol. 9.3 fl (6.2-12.0); Monocyte# 0.97 X10^3/uL; Monocyte% 14.7 % (0-10); NRBC Flagged by Analyzer 0 % (0-5); Neutrophil # 3.89 X10^3/uL (2.7-7.7); Neutrophil % 58.7 % (47-70); Platelet Count 343 K/mm3 (150-450); RBC Distribution Width CV 12.2 % (11.6-14.6); RBC Distribution Width SD 44.3 fl (35.1-43.9); Red Blood Count 3.34 M/mm3 (4.6-6.2); White Blood Count 6.6 K/mm3 (4.4-11.0)
[2024-10-08] MEDS: Gabapentin 600 MG Tablet PO ×2 (06:20→13:06)
[2024-10-08 06:41] LABS: Bedside Glucose 100 mg/dL (74-106)
[2024-10-08] MEDS: Budesonide Respules 0.5 MG/2 ML AMPUL.NEB. INHALATION (06:44)
[2024-10-08 07:01] LABS: Anion Gap 3 (5-15); BUN 20 mg/dL (7-18); BUN/Creat Ratio 14.8 RATIO (10-20); Calcium,Total 8.8 mg/dL (8.5-10.1); Chloride 91 mmol/L (98-107); Creatinine, Serum 1.35 mg/dL (0.70-1.30); EST Glomerular Filtration Rate 55 mL/min (>60); Est Glom Filt Rate - Afr Amer 67 mL/min (>60); Estimated Creatinine Clearance 56.18 ml/min; Glucose 87 mg/dL (74-106); Potassium 4.2 mmol/L (3.5-5.1); Sodium Level 126 mmol/L (136-145)
[2024-10-08] MEDS: Aspirin 81 MG TAB.CHEW PO (08:44)
[2024-10-08] MEDS: Fenofibrate 145 MG Tablet PO (08:44)
[2024-10-08] MEDS: Enoxaparin 40 MG/0.4 ML Syringe SC (08:44)
[2024-10-08] MEDS: Sodium Chloride 1 GM Tablet PO (08:44)
[2024-10-08] MEDS: buPROPion (XL) 150 MG TABLET.XL PO (08:45)
[2024-10-08] MEDS: Pantoprazole Sodium 40 MG Tablet PO (08:45)
[2024-10-08] MEDS: Lisinopril 20 MG Tablet PO (08:45)
[2024-10-08] MEDS: Potassium Chloride Oral Tablet 10 MEQ PO (08:45)
[2024-10-08] MEDS: Furosemide 40 MG Tablet PO (08:45)
[2024-10-08] MEDS: Metoprolol Tartrate 25 MG Tablet 12.5 MG PO (08:45)
--- NOTE | 2024-10-08 10:24 | DS.PCM_ITS ---
Providers Date of Admission: 10/05/24 Date of Discharge: 10/08/24 Primary Care Physician: Dr. Davide Hickman MD Reason For Visit: HF EXACERBATION Diagnosis Discharge Diagnosis (1) Acute exacerbation of chronic heart failure: Status: Acute Code(s): I50.9 - Heart failure, unspecified Plan Patient is a 74-year-old gentleman who presented with increasing weight gain and bipedal edema. An assessment of acute congestive heart failure made admitted to a monitored bed for subsequent management 1. Acute hypoxia Secondary to acute congestive heart failure patient presents supplemental oxygen with treatment of the underlying etiology ? 10/07/2024; patient has been weaned off oxygen 2. Acute congestive heart failure with preserved ejection fraction ? 2D echo obtained on admission demonstrated EF of 65%. Patient admitted to monitored bed manage strict input and output, daily weight, fluid restriction as well as furosemide ?Decreased patient furosemide dose given worsening kidney function ? Prescription was written for furosemide on discharge 3. COPD ? Currently not in exacerbation aerosol treatment as needed 4. Dyslipidemia ?Patient is on statin therapy, continued at home dose 5. Hypertension ? Blood pressure controlled, home medications continued with dose adjustment as needed ? Patient was on lisinopril discontinued on discharge given worsening kidney function and relatively low blood pressure 6. Hypothyroidism ? Patient is on levothyroxine home dose continued 7. GERD ? Patient is on PPI 8. Class II obesity with BMI of 36 ? Complicating care weight loss advised 9. Peripheral neuropathy ? Patient is on gabapentin 10. Depression with anxiety ? Patient is on fluoxetine did continue 11. DVT prophylaxis ? On enoxaparin 12. Tobacco dependence ? Counseled on cessation, offered nicotine patch for tobacco cravings 13. Hyponatremia ? Multifactorial including fluid overload status. Do also suspect component of medication induced including fluoxetine. Monitoring with daily BMPs. ? Patient sodium levels did improve with addition of salt tablet plan is for patient to follow-up with primary care physician to have repeat BMP on 10/10/2024 for subsequent management Time spent in the patient's overall evaluation,decision-making process, review of diagnostic data, adjustment of management, discussion with other providers, nursing nursing and ancillary staff involved in patient's care documentation, 40 minutes Medications at Discharge Home Medications fenofibrate 150 mg capsule (Lipofen) 160 mg PO DAILY 12/28/17 gabapentin 300 mg capsule (Neurontin) 600 mg PO TID 12/28/17 levothyroxine 175 mcg tablet 175 mcg PO QHS 12/28/17 multivitamin (Daily Multiple tablet) 1 ea PO DAILY 12/28/17 omeprazole 40 mg capsule,delayed release 40 mg PO DAILY 12/28/17 potassium chloride 10 mEq tablet,extended release 10 meq PO DAILY 12/28/17 albuterol sulfate 90 mcg/actuation aerosol inhaler 2 puff inhalation Q6H PRN PRN wheezing 10/05/24 atorvastatin 20 mg tablet 30 mg PO QHS cholesterol 10/05/24 bupropion HCl 150 mg 24 hr tablet, extended release 150 mg PO DAILY 10/05/24 fluoxetine 40 mg capsule 80 mg PO DAILY 10/05/24 fluticasone fur. 100 mcg-umeclid 62.5 mcg-vilant 25 mcg inhalat.powder (Trelegy Ellipta) 1 ea inhalation DAILY 10/05/24 naproxen 500 mg tablet 500 mg PO BID PRN PRN pain 10/05/24 tamsulosin 0.4 mg capsule 0.4 mg PO QHS 10/05/24 acetaminophen 325 mg tablet 650 mg (2 x 325 mg) PO Q4H PRN PRN Fever, pain 1- 06/09 #0 tabs 10/08/24 furosemide 40 mg tablet 40 mg PO DAILY #30 tabs 10/08/24 metoprolol tartrate 25 mg tablet 12.5 mg (1/2 x 25 mg) PO BID #60 tabs 10/08/24 sodium chloride 1,000 mg soluble tablet 1,000 mg PO BID #60 tabs 10/08/24 Hospital Course Procedures 2-D Echocardiogram Physical Exam Narrative GENERAL: cooperative HEENT: Atraumatic; normocephalic EYES; Anicteric, Normal Conjunctiva NECK; supple, normal thyroid, RESPIRATORY: Diminished to auscultation CARDIOVASCULAR: Regular S1 S2, GI: soft, normoactive bowel sounds, : No Renal angle tenderness; EXTREMITIES: bipedal edema, no clubbing, MUSCULOSKELETAL: no muscle wasting NEURO: Awake; no lateralizing signs. SKIN: No Rash PSYCH; Flat affect Weight / BMI Weight Weight: 101.6 kg Body Mass Index (BMI) 35.0 ABG / Lab / Microbiology Data 10/08/24 04:45 10/08/24 04:45 Laboratory: Laboratory Results - last 24 hr 10/07/24 17:32: POC Glucose 115 H 10/07/24 22:31: POC Glucose 97 10/08/24 03:52: POC Glucose 103 10/08/24 04:45: WBC 6.6, RBC 3.34 L, Hgb 10.4 L, Hct 32.7 L, MCV 97.9 H, MCH 31.1, MCHC 31.8 L, RDW Std Deviation 44.3 H, RDW Coeff of Spike 12.2, Plt Count 343, MPV 9.3, Immature Gran % (Auto) 0.800, Neut % (Auto) 58.7, Lymph % (Auto) 16.9 L, [place] % (Auto) 14.7 H, Eos % (Auto) 8.0 H, Baso % (Auto) 0.9, Absolute Neuts (auto) 3.9, Absolute Lymphs (auto) 1.12, Nucleated RBC % 0, Sodium 126 L, Potassium 4.2, Chloride 91 L, Carbon Dioxide 32.0, Anion Gap 3 L, BUN 20 H, C reatinine 1.35 H, Estim Creat Clear Calc 56.18, Est GFR (MDRD) Af Amer 67, Est GFR (MDRD) Non-Af 55 L, BUN/Creatinine Ratio 14.8, Glucose 87, Calcium 8.8 10/08/24 06:19: POC Glucose 100 D/C Instructions Discharge Diet: No restrictions Discharge Activity: Return to Normal Activity Call your doctor if you observe: Fever of 101 or Higher, Shortness of breath, Fainting spells and Chest pain DC O2, CPAP, BIPAP Needs Home O2 Discharge instructions: No Meaningful Use Info Meaningful Use Meaningful Use Diagnoses (Choose all that apply): CHF CHF MARIANNA/ARB ordered at discharge?: No Reason MARIANNA/ARB not ordered?: Not indicated and Worsening renal disease Documented LVEF (%): 65 Ischemic Stroke Statin Dosing Therapy Reference: STATIN DOSE THERAPY REFERENCE: * Patients > 75 years receive moderate or high dose statin therapy. * Patients 75 years or YOUNGER should receive HIGH intensity statin dose unless contraindicated. You will be required to document reason for non-treatment if statin daily dose does not meet guidelines. HIGH DOSE STATIN THERAPY DAILY Atorvastatin > than or = to 40 mg Rosuvastatin > than or = to 20 mg Amlodipine + Atorvastatin > than or = to 2.5/40 mg Ezetimibe + Simvastatin 10/80 mg Simvastatin 80mg Discharge Plan Admission Admit Date/Time: 10/05/24 20:11 Attending Provider: Theron Huizar Primary Care Provider: Davide Hickman Consulting Providers: Bere Green Discharge Orders/Prescriptions Prescriptions: New furosemide 40 mg Tablet 40 mg PO DAILY Qty: 30 0RF acetaminophen 325 mg Tablet 650 mg PO Q4H PRN PRN (Reason: Fever, pain -06/09) Qty: 0 0RF metoprolol tartrate 25 mg Tablet 12.5 mg PO BID Qty: 60 0RF sodium chloride 1,000 mg Tablet,Soluble 1,000 mg PO BID Qty: 60 0RF Continued multivitamin [Daily Multiple] 1 EACH tablet 1 ea PO DAILY levothyroxine 175 MCG tablet 175 mcg PO QHS potassium chloride 10 MEQ tablet extended release 10 meq PO DAILY omeprazole 40 MG capsule,delayed release(DR/EC) 40 mg PO DAILY gabapentin [Neurontin] 300 MG capsule 600 mg PO TID fenofibrate [Lipofen] 150 MG capsule 160 mg PO DAILY fluoxetine 40 mg capsule 80 mg PO DAILY atorvastatin 20 mg tablet 30 mg PO QHS tamsulosin 0.4 mg capsule 0.4 mg PO QHS albuterol sulfate 90 mcg/actuation HFA aerosol inhaler 2 puff INHALATION Q6H PRN PRN (Reason: wheezing) naproxen 500 mg tablet 500 mg PO BID PRN PRN (Reason: pain) bupropion HCl 150 mg tablet extended release 24 hr 150 mg PO DAILY Trelegy Ellipta 100-62.5-25 mcg blister with device 1 ea INHALATION DAILY Discontinued lisinopril 20 MG tablet 20 mg PO DAILY Other Ambulatory Orders: Basic Metabolic Profile (BMP) (Routine) Timeframe: 20241010 Facility: [facility] - Location: Laboratory Ordered By: Dr. Theron Huizar Referrals / Follow Up: Davide Hickman MD [Primary Care Provider] - In 1 Week (For results of BMP and subsequent management) Disposition Disposition (needs filled in before D/C Order can be placed): Home, Self Care Charges/Coding Visit Charges Inpatient E&M: 56379 Disch Hosp >30min
[2024-10-08 12:13] LABS: Bedside Glucose 100 mg/dL (74-106)
[2024-10-08 13:13] LABS: Bedside Glucose 96 mg/dL (74-106)
== END 2024-10-08 13:23 | disposition home or self-care (01) | DRG 291 ==
LOC: ED 19:31 → PCU 20:50
PROVIDERS: Admitting Provider Family Medicine; Emergency Provider Surgery; PCP Family Medicine; Referring Provider Surgery; Visit Provider Internal Medicine
DX: I11.0 Hypertensive heart disease with heart failure (principal); I50.31 Acute diastolic (congestive) heart failure; E87.1 Hypo-osmolality and hyponatremia; N13.8 Other obstructive and reflux uropathy; E11.42 Type 2 diabetes mellitus with diabetic polyneuropathy; J44.9 Chronic obstructive pulmonary disease, unspecified; E03.9 Hypothyroidism, unspecified; F32.A Depression, unspecified; E66.812 Obesity, class 2; E78.5 Hyperlipidemia, unspecified; F17.210 Nicotine dependence, cigarettes, uncomplicated; K21.9 Gastro-esophageal reflux disease without esophagitis; F41.9 Anxiety disorder, unspecified; N40.1 Benign prostatic hyperplasia with lower urinary tract symptoms; R09.02 Hypoxemia; Z68.36 Body mass index [BMI] 36.0-36.9, adult; Z79.51 Long term (current) use of inhaled steroids; Z79.82 Long term (current) use of aspirin; Z79.84 Long term (current) use of oral hypoglycemic drugs; Z79.890 Hormone replacement therapy; Z79.899 Other long term (current) drug therapy
CPT/HCPCS: 36415; 71046; 80048; 80053; 80061; 82962; 83735; 83880; 84100; 84439; 84443; 84484; 85025; 93005; 93306; 94640; 94668; 97161; 97802; 99252; 99285; Q9957; A4216; G0463; J1940